=== PATIENT | male | born 1955 | race Caucasian/White ===

== ENCOUNTER 2020-05-07 13:27 | Inpatient (IN) | payer MEDICAID ==
[2020-05-07] MEDS ORDERED: Sodium Chloride 0.9% 10 ML Syringe FLUSH PRN (13:46)
[2020-05-07] MEDS ORDERED: Sodium Chloride 0.9% 1,000 ML IV ONE (13:46)
[2020-05-07] MEDS ORDERED: Ondansetron 4 MG/2 ML SDV IVPUSH ONE (13:46)
--- NOTE | 2020-05-07 13:52 | EDM.PDOC ---
ED HPI GENERAL MEDICAL PROBLEM - General Chief Complaint: Syncope Stated Complaint: DIZZINESS WEAK Time Seen by Provider: 05/07/20 13:28 Source of Information: Reports: Patient History Limitations: Reports: No Limitations - History of Present Illness INITIAL COMMENTS - FREE TEXT/NARRATIVE: HISTORY AND PHYSICAL: History of present illness: Patient is a 65-year-old male who presents to the emergency room with complaints of syncopal events. He states over the past 2 days he has felt weak and tremulous. He has had several syncopal events, states he does not recall the sensation of going to pass out. Patient is a routine alcohol drinker although he states that is typically "just on weekends". Denies any recent alcohol use. This morning he had nausea, vomiting and diaphoresis. His daughter reports that he passed out while at home and made him come to the emergency department for evaluation. He reports he does not remember passing out today. The daughter also reports that Daniel was recently seen in [place] and was told he had some "heart problems and low potassium". Patient denies any fever, headache, change in vision, neck pain/stiffness, chest pain, back pain, shortness of breath or cough. Denies any abdominal pain, diarrhea, constipation or dysuria. Has not noted any blood in urine or stool. Patient has been eating and drinking appropriately. Review of systems: As per history of present illness and below otherwise all systems reviewed and negative. Past medical history: As per history of present illness and as reviewed below otherwise noncontribut ory. Surgical history: As per history of present illness and as reviewed below otherwise noncontributory. Social history: See social history for further information Family history: As per history of present illness and as reviewed below otherwise noncontributory. Physical exam: General: Well-developed and well-nourished 65-year-old male. Alert and oriented. Nontoxic-appearing and in no acute distress. HEENT: Atraumatic, normocephalic, pupils equal and reactive bilaterally, negative for conjunctival pallor or scleral icterus, nystagmus noted, mucous membranes moist, TMs normal bilaterally, throat clear, neck supple, nontender, trachea midline. No drooling or trismus noted. No meningeal signs. No hot potato voice noted. Lungs: Clear to auscultation, breath sounds equal bilaterally, chest nontender. Heart: S1S2, regular rate and rhythm without overt murmur Abdomen: Soft, nondistended, nontender. Negative for masses or hepatosplenomegaly. Negative for costovertebral tenderness. Pelvis: Stable nontender. Skin: Intact, warm, dry. No lesions or rashes noted. Extremities: Ambulatory, moves all extremities per self without difficulty or deficits, negative for cords or calf pain. Neurovascular unremarkable. Neuro: Awake, alert, oriented. Cranial nerves II through XII unremarkable. Cerebellum unremarkable. Motor and sensory unremarkable throughout. Exam nonfocal. Notes: Patient's vital signs are stable. Blood glucose is 108. NIH 0, GCS 15. CIWA 8 (+ nausea, agitation, tremor, diaphoresis). Patient did get up to use the bathroom, standing at the bedside to use the urinal and it was noted that his pulse rate did go into the 140s. Lab work shows hypo-magnesium. Vital signs remained stable. Imaging is unremarkable. Admission was offered for observation with telemetry, patient is agreeable. Dr. Richey, hospitalist was consulted on this case, he is agreeable to keeping this patient for further care and management. Diagnostics: CBC, CMP, UA, urine drug screen, EtOH, lipase, EKG, troponin, 1 view chest, head CT Therapeutics: IV fluid, Zofran Prescription: None Impression: Syncope Hypomagnesemia Alcohol withdrawl Plan: Observation admission with telemetry Definitive disposition and diagnosis as appropriate pending reevaluation and review of above. - Related Data Allergies Allergy/AdvReac Type Severity Reaction Status Date / Time No Known Allergies Allergy Verified 05/07/20 13:42 Home Meds: Home Meds . [No Known Home Meds] 05/07/20 [History] ED ROS GENERAL - Review of Systems Review Of Systems: Comprehensive ROS is negative, except as noted in HPI. - Physical Exam Exam: See Below (See dictation) Course - Vital Signs Last Recorded V/S: Last Vital Signs Temp 96 F L 05/07/20 13:37 Pulse 145 H 05/07/20 15:07 Resp 27 H 05/07/20 15:07 BP 154/83 H 05/07/20 15:07 Pulse Ox 92 L 05/07/20 15:07 - Orders/Labs/Meds Orders: Active Orders 24 hr Category Date Time Status EKG Documentation Completion [RC] STAT Care 05/07/20 13:46 Active MVI, Adult with Vitamin K [Infuvite Adult] 10 ml Med 05/07/20 15:11 Ordered Thiamine [Vitamin B-1] 100 mg Folic Acid 1 mg Sodium Chloride 0.9% [Normal Saline] 1,000 ml IV ONETIME Magnesium Sulfate/Water [Magnesium Sulfate in Water Med 05/07/20 15:03 Ordered Premix] 2 gm Premix Bag 1 bag IV ONETIME Sodium Chloride 0.9% [Saline Flush] Med 05/07/20 13:46 Active 10 ml FLUSH ASDIRECTED PRN Sodium Chloride 0.9% [Saline Flush] Med 05/07/20 13:46 Active 2.5 ml FLUSH ASDIRECTED PRN Saline Lock Insert [OM.PC] Stat Oth 05/07/20 13:46 Ordered Medication Orders Magnesium Sulfate 2 gm/ Premix 50 mls @ 50 mls/hr IV ONETIME ONE Stop: 05/07/20 16:02 Multivitamins/Minerals 10 ml/Thiamine HCl 100 mg/ Folic Acid 1 mg/ Sodium Chloride 1,011.2 mls @ 150 mls/hr IV ONETIME ONE Stop: 05/07/20 21:55 Sodium Chloride (Saline Flush) 10 ml FLUSH ASDIRECTED PRN PRN Reason: Keep Vein Open Last Admin: 05/07/20 14:15 Dose: 10 ml Documented by: KEISHA Sodium Chloride (Saline Flush) 2.5 ml FLUSH ASDIRECTED PRN PRN Reason: Keep Vein Open Last Admin: 05/07/20 14:15 Dose: 2.5 ml Documented by: KEISHA Labs: Laboratory Tests 05/07/20 05/07/20 05/07/20 Range/Units 13:45 13:45 13:45 WBC 3.45 L (4.0-11.0) K/uL RBC 3.86 L (4.50-5.90) M/uL Hgb 13.7 (13.0-17.0) g/dL Hct 39.2 (38.0-50.0) % MCV 101.6 H (80.0-98.0) fL MCH 35.5 H (27.0-32.0) pg MCHC 34.9 (31.0-37.0) g/dL RDW Std Deviation 48.3 (28.0-62.0) fl RDW Coeff of [place] 13 (11.0-15.0) % Plt Count 100 L (150-400) K/uL MPV 9.60 (7.40-12.00) fL Neut % (Auto) 58.2 (48.0-80.0) % Lymph % (Auto) 29.3 (16.0-40.0) % Rains % (Auto) 11.3 (0.0-15.0) % Eos % (Auto) 0.9 (0.0-7.0) % Baso % (Auto) 0.3 (0.0-1.5) % Neut # (Auto) 2.0 (1.4-5.7) K/uL Lymph # (Auto) 1.0 (0.6-2.4) K/uL Rains # (Auto) 0.4 (0.0-0.8) K/uL Eos # (Auto) 0.0 (0.0-0.7) K/uL Baso # (Auto) 0.0 (0.0-0.1) K/uL Nucleated RBC % 0.0 /100WBC Nucleated RBCs # 0 K/uL Sodium 140 (136-148) mmol/L Potassium 3.8 (3.5-5.1) mmol/L Chloride 101 (98-107) mmol/L Carbon Dioxide 25.4 (21.0-32.0) mmol/L BUN 3 L (7.0-18.0) mg/dL Creatinine 0.6 L (0.8-1.3) mg/dL Est Cr Clr Drug Dosing TNP Estimated GFR (MDRD) > 60.0 ml/min Glucose 105 (74-106) mg/dL POC Glucose (60-110) mg/dL Calcium 8.1 L (8.5-10.1) mg/dL Magnesium 1.2 L (1.8-2.4) mg/dL Total Bilirubin 1.3 H (0.2-1.0) mg/dL AST 131 H (15-37) IU/L ALT 99 H (14-63) IU/L Alkaline Phosphatase 84 (46-116) U/L Troponin I < 0.050 (0.000-0.056) ng/mL Total Protein 6.7 (6.4-8.2) g/dL Albumin 3.6 (3.4-5.0) g/dL Globulin 3.1 (2.6-4.0) g/dL Albumin/Globulin Ratio 1.2 (0.9-1.6) Lipase 100 (73-393) U/L Urine Opiates Screen (NEGATIVE) Ur Oxycodone Screen (NEGATIVE) Urine Methadone Screen (NEGATIVE) Ur Barbiturates Screen (NEGATIVE) Ur Phencyclidine Scrn (NEGATIVE) Ur Amphetamine Screen (NEGATIVE) U Methamphetamines Scrn (NEGATIVE) U Benzodiazepines Scrn (NEGATIVE) U Cocaine Metab Screen (NEGATIVE) U Marijuana (THC) Screen (NEGATIVE) Ethyl Alcohol 91 mg/dL 05/07/20 05/07/20 Range/Units 13:47 14:35 WBC (4.0-11.0) K/uL RBC (4.50-5.90) M/uL Hgb (13.0-17.0) g/dL Hct (38.0-50.0) % MCV (80.0-98.0) fL MCH (27.0-32.0) pg MCHC (31.0-37.0) g/dL RDW Std Deviation (28.0-62.0) fl RDW Coeff of [place] (11.0-15.0) % Plt Count (150-400) K/uL MPV (7.40-12.00) fL Neut % (Auto) (48.0-80.0) % Lymph % (Auto) (16.0-40.0) % Rains % (Auto) (0.0-15.0) % Eos % (Auto) (0.0-7.0) % Baso % (Auto) (0.0-1.5) % Neut # (Auto) (1.4-5.7) K/uL Lymph # (Auto) (0.6-2.4) K/uL Rains # (Auto) (0.0-0.8) K/uL Eos # (Auto) (0.0-0.7) K/uL Baso # (Auto) (0.0-0.1) K/uL Nucleated RBC % /100WBC Nucleated RBCs # K/uL Sodium (136-148) mmol/L Potassium (3.5-5.1) mmol/L Chloride (98-107) mmol/L Carbon Dioxide (21.0-32.0) mmol/L BUN (7.0-18.0) mg/dL Creatinine (0.8-1.3) mg/dL Est Cr Clr Drug Dosing Estimated GFR (MDRD) ml/min Glucose (74-106) mg/dL POC Glucose 108 (60-110) mg/dL Calcium (8.5-10.1) mg/dL Magnesium (1.8-2.4) mg/dL Total Bilirubin (0.2-1.0) mg/dL AST (15-37) IU/L ALT (14-63) IU/L Alkaline Phosphatase (46-116) U/L Troponin I (0.000-0.056) ng/mL Total Protein (6.4-8.2) g/dL Albumin (3.4-5.0) g/dL Globulin (2.6-4.0) g/dL Albumin/Globulin Ratio (0.9-1.6) Lipase (73-393) U/L Urine Opiates Screen NEGATIVE (NEGATIVE) Ur Oxycodone Screen NEGATIVE (NEGATIVE) Urine Methadone Screen NEGATIVE (NEGATIVE) Ur Barbiturates Screen NEGATIVE (NEGATIVE) Ur Phencyclidine Scrn NEGATIVE (NEGATIVE) Ur Amphetamine Screen NEGATIVE (NEGATIVE) U Methamphetamines Scrn NEGATIVE (NEGATIVE) U Benzodiazepines Scrn NEGATIVE (NEGATIVE) U Cocaine Metab Screen NEGATIVE (NEGATIVE) U Marijuana (THC) Screen NEGATIVE (NEGATIVE) Ethyl Alcohol mg/dL Meds: Medications Generic Name Dose Route Start Last Admin Trade Name Freq PRN Reason Stop Dose Admin Magnesium Sulfate 2 gm/ Premix 50 mls @ 50 mls/hr 05/07/20 15:03 IV 05/07/20 16:02 ONETIME ONE Multivitamins/Minerals 10 ml/ 1,011.2 mls @ 150 mls/hr 05/07/20 15:11 Thiamine HCl 100 mg/ Folic IV 05/07/20 21:55 Acid 1 mg/ Sodium Chloride ONETIME ONE Sodium Chloride 10 ml 05/07/20 13:46 05/07/20 14:15 Saline Flush FLUSH 10 ml ASDIRECTED PRN Administration Keep Vein Open Sodium Chloride 2.5 ml 05/07/20 13:46 05/07/20 14:15 Saline Flush FLUSH 2.5 ml ASDIRECTED PRN Administration Keep Vein Open Discontinued Medications Generic Name Dose Route Start Last Admin Trade Name Freq PRN Reason Stop Dose Admin Sodium Chloride 1,000 mls @ 999 mls/hr 05/07/20 13:46 05/07/20 14:06 Normal Saline IV 05/07/20 14:46 999 mls/hr STAT ONE Administration Lorazepam 1 mg 05/07/20 14:43 Ativan IVPUSH 05/07/20 14:44 ONETIME ONE Ondansetron HCl 4 mg 05/07/20 13:46 05/07/20 14:06 Zofran IVPUSH 05/07/20 13:47 4 mg ONETIME ONE Administration Departure - Departure Time of Disposition: 15:16 Disposition: Refer to Observation Clinical Impression: Hypomagnesemia Syncope Qualifiers: Syncope type: unspecified Qualified Code(s): R55 - Syncope and collapse Alcohol withdrawal Qualifiers: Complication of substance-induced condition: uncomplicated Qualified Code(s): F10.230 - Alcohol dependence with withdrawal, uncomplicated - Discharge Information Referrals: PCP,Not In Area [Primary Care Provider] - Forms: ED Department Discharge Sepsis Event Note (ED) - Evaluation Sepsis Screening Result: No Definite Risk - Focused Exam Vital Signs: Vital Signs Temp Pulse Resp BP Pulse Ox 05/07/20 15:07 145 H 27 H 154/83 H 92 L 05/07/20 14:48 93 16 138/67 92 L 05/07/20 14:15 72 16 141/69 H 93 L 05/07/20 13:37 96 F L 80 19 141/69 H 96 - My Orders Last 24 Hours: My Active Orders 05/07/20 13:46 EKG Documentation Completion [RC] STAT Sodium Chloride 0.9% [Saline Flush] 10 ml FLUSH ASDIRECTED PRN Sodium Chloride 0.9% [Saline Flush] 2.5 ml FLUSH ASDIRECTED PRN Saline Lock Insert [OM.PC] Stat 05/07/20 15:03 Magnesium Sulfate/Water [Magnesium Sulfate in Water Premix] 2 gm Premix Bag 1 bag IV ONETIME 05/07/20 15:11 MVI, Adult with Vitamin K [Infuvite Adult] 10 ml Thiamine [Vitamin B-1] 100 mg Folic Acid 1 mg Sodium Chloride 0.9% [Normal Saline] 1,000 ml IV ONETIME - Assessment/Plan Last 24 Hours: My Active Orders 05/07/20 13:46 EKG Documentation Completion [RC] STAT Sodium Chloride 0.9% [Saline Flush] 10 ml FLUSH ASDIRECTED PRN Sodium Chloride 0.9% [Saline Flush] 2.5 ml FLUSH ASDIRECTED PRN Saline Lock Insert [OM.PC] Stat 05/07/20 15:03 Magnesium Sulfate/Water [Magnesium Sulfate in Water Premix] 2 gm Premix Bag 1 bag IV ONETIME 05/07/20 15:11 MVI, Adult with Vitamin K [Infuvite Adult] 10 ml Thiamine [Vitamin B-1] 100 mg Folic Acid 1 mg Sodium Chloride 0.9% [Normal Saline] 1,000 ml IV ONETIME
[2020-05-07] MEDS: Sodium Chloride 0.9% 2.5 ML Syringe FLUSH PRN (14:15)
[2020-05-07 14:21] LABS: BLOOD UREA NITROGEN,BUN 3 mg/dL (7.0-18.0); CARBON DIOXIDE,CO2 25.4 mmol/L (21.0-32.0); CHLORIDE,CL 101 mmol/L (98-107); GLUCOSE RANDOM 105 mg/dL (74-106); LIPASE 100 U/L (73-393); POTASSIUM,K 3.8 mmol/L (3.5-5.1); SODIUM,NA 140 mmol/L (136-148)
[2020-05-07] MEDS ORDERED: LORazepam 2 MG/ML SDV IVPUSH ONE (14:43)
--- NOTE | 2020-05-07 14:43 | CT ---
Head CT Technique: Multiple axial sections through the brain were obtained. Intravenous contrast was not utilized. Comparison: No prior intracranial imaging is available. Findings: Ventricles along with basal cisterns and sulci over the convexities are mildly prominent. No abnormal parenchymal densities are seen. No evidence of intracranial hemorrhage. No midline shift or mass-effect is appreciated. Bone window settings were reviewed. No acute calvarial abnormality is seen. Nothing acute is seen within the visualized paranasal sinuses or mastoid sinuses. Impression: 1. Mild generalized atrophy. 2. No acute intracranial abnormality is appreciated. Diagnostic code #2 This report was dictated in MD[facility]
--- NOTE | 2020-05-07 14:43 | CR ---
Chest: Portable view of the chest was obtained. Comparison: No prior chest imaging is available. Heart size and mediastinum are normal. Lungs are clear with no acute parenchymal change. Bony structures are grossly intact. Impression: 1. Nothing acute is seen on portable chest x-ray. Diagnostic code #1 This report was dictated in MDT
[2020-05-07] MEDS ORDERED: Magnesium Sulfate/Water 2 GM in Premix Bag 1 BAG IV ONE ×2 (15:03→16:30)
[2020-05-07] MEDS ORDERED: MVI, Adult with Vitamin K 10 ML, Thiamine 100 MG, Folic Acid 1 MG in Sodium Chloride 0.... IV ONE ×4 (15:11)
[2020-05-07] MEDS ORDERED: Ondansetron 4 MG/2 ML SDV IVPUSH PRN (16:04)
[2020-05-07] MEDS ORDERED: Albuterol/Ipratropium 3.0-0.5 MG/3 ML Neb Soln NEB PRN (16:04)
--- NOTE | 2020-05-07 16:12 | PCM.HP.2 ---
H&P History of Present Illness - General Date of Service: 05/07/20 Admit Problem/Dx: Admission Diagnosis/Problem Admission Diagnosis/Problem Syncope Source of Information: Patient History Limitations: Reports: No Limitations - History of Present Illness Initial Comments - Free Text/Narative: This 65 year old male with little past medical history presented to the ED today with complaints of shaking, sweating, and daughter reports passing out. He reports he was feeling not well the last few days, having trouble walking because he is so unsteady and shaky. Denies blurred vision or double vision. He denies headache or fevers. No chest pain or SOB. He reports he drinks at least a 6 pack a night, maybe more depending on who is with him. He says the last drink he had was last night. He isn't sure if shaking gets worse when he stops drinking or when he is drinking. He denies history of seizures. He reports he was in [place] last week or two and had low potassium and also noted bloody stools. He reports he was given a pill to take before he eats. He reports the last bloody stool was 2 weeks ago. Denies black stool now. No abdominal pain. His daughter reported syncope, which he states he doesn't remember that, that was happening. He also reports he recently had a carotid test, and it stated he had plaque build up, but he is unsure how much. He reports he smokes 1/2 ppd since he was 20 years old. He denies recreational drug use. In the ED no leukocytosis noted, hgb 13.7 (NDHIN baseline around 14.7) Platelets 100,000, last drawn 140,000 04/18/2020. K+ 3.8, Magnesium 1.2 Bilirubin 1.3, AST 131, ALT 99, alk phos 84, which are near baseline. Troponin negative. Lipase 100. ETOH 94, UA and Utox negative. CXr negative for acute cardiopulmonary process, Head CT negative as well, mild atrophy noted. With acitivity tachycardia is noted, 140s and he gets lightheaded with activity and feels very shaky. He was given magnesium 2 gm IV, MVI IV, Zofran and 1 L NS in the ED. he will be admitted with alcohol withdrawal, hypomagnesemia and syncope. [facility] records reviewed, only labwork available as mentioned above. - Related Data Allergies/Adverse Reactions: Allergies Allergy/AdvReac Type Severity Reaction Status Date / Time No Known Allergies Allergy Verified 05/07/20 13:42 Home Medications: Home Meds . [No Known Home Meds] 05/07/20 [History] Past Medical History HEENT History: Reports: Impaired Vision, Other (See Below) Other HEENT History: wears glassess Cardiovascular History: Reports: Other (See Below) Other Cardiovascular History: heart problem Gastrointestinal History: Reports: None - Past Surgical History HEENT Surgical History: Reports: None GI Surgical History: Reports: Other (See Below) Other GI Surgeries/Procedures: "part of small intestine taken out" Social & Family History - Family History Family Medical History: Noncontributory - Tobacco Use Smoking Status *Q: Current Every Day Smoker Years of Tobacco use: 20 Packs/Tins Daily: 0.5 - Caffeine Use Caffeine Use: Reports: Coffee - Alcohol Use Alcohol Use History: Yes Days Per Week of Alcohol Use: 7 Number of Drinks Per Day: 6 Total Drinks Per Week: 42 Alcohol Use Frequency: Daily - Recreational Drug Use Recreational Drug Use: No H&P Review of Systems - Review of Systems: Review Of Systems: See Below General: Reports: Malaise, Weakness, Fatigue HEENT: Reports: No Symptoms. Denies: Headaches, Vertigo, Visual Changes Pulmonary: Reports: No Symptoms. Denies: Shortness of Breath Cardiovascular: Reports: Syncope. Denies: Chest Pain, Lightheadedness, Blood Pressure Problem Gastrointestinal: Reports: No Symptoms. Denies: Abdominal Pain, Black Stool, Bloody Stool, Decreased Appetite, Nausea, Vomiting Genitourinary: Reports: No Symptoms. Denies: Dysuria, Frequency, Burning Skin: Reports: No Symptoms Psychiatric: Reports: No Symptoms Neurological: Reports: Syncope, Tremors, Difficulty Walking. Denies: Seizure Hematologic/Lymphatic: Reports: No Symptoms Immunologic: Reports: No Symptoms Exam - Exam Exam: See Below - Vital Signs Vital Signs: Last Vital Signs Temp 96 F L 05/07/20 13:37 Pulse 93 05/07/20 15:56 Resp 17 05/07/20 15:56 BP 146/88 H 05/07/20 15:56 Pulse Ox 92 L 05/07/20 15:56 - Exam General: Alert, Oriented, Cooperative HEENT: Conjunctiva Clear, Mucosa Moist & [place], Posterior Pharynx Clear, Scleral Icterus (mild), Other (nystagmus noted intermittently) Neck: Supple, Full Range of Motion. No: JVD Lungs: Clear to Auscultation, Normal Respiratory Effort Cardiovascular: Regular Rate, Regular Rhythm, Normal S1, Normal S2 GI/Abdominal Exam: Normal Bowel Sounds, Soft, Non-Tender Back Exam: Normal Inspection, Full Range of Motion Extremities: Normal Inspection, Normal Range of Motion, Non-Tender, No Pedal Edema Skin: Warm, Dry, Petechia, Ecchymosis (bilateral arms) Neuro Extensive - Mental Status: Alert, Oriented x3, Other (speech pressed at times) Neuro Extensive - Motor, Sensory, Reflexes: CN II-XII Intact, Abnormal Gait, Ataxia Psychiatric: Alert, Normal Affect, Normal Mood, Withdrawal Symptoms - Patient Data Lab Results Last 24 hrs: Laboratory Results - last 24 hr 05/07/20 05/07/20 05/07/20 Range/Units 13:45 13:45 13:45 WBC 3.45 L (4.0-11.0) K/uL RBC 3.86 L (4.50-5.90) M/uL Hgb 13.7 (13.0-17.0) g/dL Hct 39.2 (38.0-50.0) % MCV 101.6 H (80.0-98.0) fL MCH 35.5 H (27.0-32.0) pg MCHC 34.9 (31.0-37.0) g/dL RDW Std Deviation 48.3 (28.0-62.0) fl RDW Coeff of [place] 13 (11.0-15.0) % Plt Count 100 L (150-400) K/uL MPV 9.60 (7.40-12.00) fL Neut % (Auto) 58.2 (48.0-80.0) % Lymph % (Auto) 29.3 (16.0-40.0) % [place] % (Auto) 11.3 (0.0-15.0) % Eos % (Auto) 0.9 (0.0-7.0) % Baso % (Auto) 0.3 (0.0-1.5) % Neut # (Auto) 2.0 (1.4-5.7) K/uL Lymph # (Auto) 1.0 (0.6-2.4) K/uL [place] # (Auto) 0.4 (0.0-0.8) K/uL Eos # (Auto) 0.0 (0.0-0.7) K/uL Baso # (Auto) 0.0 (0.0-0.1) K/uL Nucleated RBC % 0.0 /100WBC Nucleated RBCs # 0 K/uL Sodium 140 (136-148) mmol/L Potassium 3.8 (3.5-5.1) mmol/L Chloride 101 (98-107) mmol/L Carbon Dioxide 25.4 (21.0-32.0) mmol/L BUN 3 L (7.0-18.0) mg/dL Creatinine 0.6 L (0.8-1.3) mg/dL Est Cr Clr Drug Dosing TNP Estimated GFR (MDRD) > 60.0 ml/min Glucose 105 (74-106) mg/dL POC Glucose (60-110) mg/dL Calcium 8.1 L (8.5-10.1) mg/dL Magnesium 1.2 L (1.8-2.4) mg/dL Total Bilirubin 1.3 H (0.2-1.0) mg/dL AST 131 H (15-37) IU/L ALT 99 H (14-63) IU/L Alkaline Phosphatase 84 (46-116) U/L Troponin I < 0.050 (0.000-0.056) ng/mL Total Protein 6.7 (6.4-8.2) g/dL Albumin 3.6 (3.4-5.0) g/dL Globulin 3.1 (2.6-4.0) g/dL Albumin/Globulin Ratio 1.2 (0.9-1.6) Lipase 100 (73-393) U/L Urine Color Urine Appearance Urine pH (5.0-8.0) Ur Specific [place] (1.001-1.035) Urine Protein (NEGATIVE) mg/dL Urine Glucose (UA) (NEGATIVE) mg/dL Urine Ketones (NEGATIVE) mg/dL Urine Occult Blood (NEGATIVE) Urine Nitrite (NEGATIVE) Urine Bilirubin (NEGATIVE) Urine Urobilinogen (<2.0) EU/dL Ur Leukocyte Esterase (NEGATIVE) Urine RBC (0-2/HPF) Urine WBC (0-5/HPF) Ur Epithelial Cells (NONE-FEW) Urine Bacteria (NEGATIVE) Urine Opiates Screen (NEGATIVE) Ur Oxycodone Screen (NEGATIVE) Urine Methadone Screen (NEGATIVE) Ur Barbiturates Screen (NEGATIVE) Ur Phencyclidine Scrn (NEGATIVE) Ur Amphetamine Screen (NEGATIVE) U Methamphetamines Scrn (NEGATIVE) U Benzodiazepines Scrn (NEGATIVE) U Cocaine Metab Screen (NEGATIVE) U Marijuana (THC) Screen (NEGATIVE) Ethyl Alcohol 91 mg/dL 05/07/20 05/07/20 05/07/20 Range/Units 13:47 14:35 14:35 WBC (4.0-11.0) K/uL RBC (4.50-5.90) M/uL Hgb (13.0-17.0) g/dL Hct (38.0-50.0) % MCV (80.0-98.0) fL MCH (27.0-32.0) pg MCHC (31.0-37.0) g/dL RDW Std Deviation (28.0-62.0) fl RDW Coeff of [place] (11.0-15.0) % Plt Count (150-400) K/uL MPV (7.40-12.00) fL Neut % (Auto) (48.0-80.0) % Lymph % (Auto) (16.0-40.0) % [place] % (Auto) (0.0-15.0) % Eos % (Auto) (0.0-7.0) % Baso % (Auto) (0.0-1.5) % Neut # (Auto) (1.4-5.7) K/uL Lymph # (Auto) (0.6-2.4) K/uL [place] # (Auto) (0.0-0.8) K/uL Eos # (Auto) (0.0-0.7) K/uL Baso # (Auto) (0.0-0.1) K/uL Nucleated RBC % /100WBC Nucleated RBCs # K/uL Sodium (136-148) mmol/L Potassium (3.5-5.1) mmol/L Chloride (98-107) mmol/L Carbon Dioxide (21.0-32.0) mmol/L BUN (7.0-18.0) mg/dL Creatinine (0.8-1.3) mg/dL Est Cr Clr Drug Dosing Estimated GFR (MDRD) ml/min Glucose (74-106) mg/dL POC Glucose 108 (60-110) mg/dL Calcium (8.5-10.1) mg/dL Magnesium (1.8-2.4) mg/dL Total Bilirubin (0.2-1.0) mg/dL AST (15-37) IU/L ALT (14-63) IU/L Alkaline Phosphatase (46-116) U/L Troponin I (0.000-0.056) ng/mL Total Protein (6.4-8.2) g/dL Albumin (3.4-5.0) g/dL Globulin (2.6-4.0) g/dL Albumin/Globulin Ratio (0.9-1.6) Lipase (73-393) U/L Urine Color YELLOW Urine Appearance CLEAR Urine pH 6.5 (5.0-8.0) Ur Specific [place] 1.020 (1.001-1.035) Urine Protein NEGATIVE (NEGATIVE) mg/dL Urine Glucose (UA) NEGATIVE (NEGATIVE) mg/dL Urine Ketones TRACE H (NEGATIVE) mg/dL Urine Occult Blood TRACE-INTACT H (NEGATIVE) Urine Nitrite NEGATIVE (NEGATIVE) Urine Bilirubin NEGATIVE (NEGATIVE) Urine Urobilinogen 1.0 (<2.0) EU/dL Ur Leukocyte Esterase NEGATIVE (NEGATIVE) Urine RBC 0-4 (0-2/HPF) Urine WBC 0-2 (0-5/HPF) Ur Epithelial Cells RARE (NONE-FEW) Urine Bacteria RARE (NEGATIVE) Urine Opiates Screen NEGATIVE (NEGATIVE) Ur Oxycodone Screen NEGATIVE (NEGATIVE) Urine Methadone Screen NEGATIVE (NEGATIVE) Ur Barbiturates Screen NEGATIVE (NEGATIVE) Ur Phencyclidine Scrn NEGATIVE (NEGATIVE) Ur Amphetamine Screen NEGATIVE (NEGATIVE) U Methamphetamines Scrn NEGATIVE (NEGATIVE) U Benzodiazepines Scrn NEGATIVE (NEGATIVE) U Cocaine Metab Screen NEGATIVE (NEGATIVE) U Marijuana (THC) Screen NEGATIVE (NEGATIVE) Ethyl Alcohol mg/dL Result Diagrams: 05/07/20 13:45 05/07/20 13:45 EKG INTERPRETATION EKG Date: 05/07/20 Rhythm: NSR P-Wave: Present QRS: Normal ST-T: Normal QT: Normal Sepsis Event Note - Evaluation Sepsis Screening Result: No Definite Risk - Focused Exam Vital Signs: Vital Signs Temp Pulse Resp BP Pulse Ox 05/07/20 15:56 93 17 146/88 H 92 L 05/07/20 15:07 145 H 27 H 154/83 H 92 L 05/07/20 14:48 93 16 138/67 92 L 05/07/20 14:15 72 16 141/69 H 93 L 05/07/20 13:37 96 F L 80 19 141/69 H 96 Date Exam was Performed: 05/07/20 Time Exam was Performed: 16:16 - Problem List (1) History of GI bleed SNOMED Code(s): 871068333 ICD Code: Z87.19 - PERSONAL HISTORY OF OTHER DISEASES OF THE DIGESTIVE SYSTEM Status: Acute Current Visit: Yes (2) Alcohol abuse SNOMED Code(s): 79877031 ICD Code: F10.10 - ALCOHOL ABUSE, UNCOMPLICATED Status: Acute Current Visit: Yes (3) Wernicke's syndrome SNOMED Code(s): 00161471 ICD Code: E51.2 - WERNICKE'S ENCEPHALOPATHY Status: Acute Current Visit: Yes (4) Transaminitis SNOMED Code(s): 462187129, 001596985 ICD Code: R74.0 - NONSPEC ELEV OF LEVELS OF TRANSAMNS & LACTIC ACID DEHYDRGNSE Status: Acute Current Visit: Yes (5) Hyperbilirubinemia SNOMED Code(s): 41613984 ICD Code: E80.6 - OTHER DISORDERS OF BILIRUBIN METABOLISM Status: Acute Current Visit: Yes (6) Thrombocytopenia SNOMED Code(s): 733176603 ICD Code: D69.6 - THROMBOCYTOPENIA, UNSPECIFIED Status: Acute Current Visit: Yes (7) Alcohol withdrawal SNOMED Code(s): 608539454 ICD Code: F10.239 - ALCOHOL DEPENDENCE WITH WITHDRAWAL, UNSPECIFIED Status: Acute Current Visit: Yes Qualifiers: Complication of substance-induced condition: uncomplicated Qualified Code(s): F10.230 - Alcohol dependence with withdrawal, uncomplicated (8) Hypomagnesemia SNOMED Code(s): 450948518 ICD Code: E83.42 - HYPOMAGNESEMIA Status: Acute Current Visit: Yes (9) Syncope SNOMED Code(s): 334526095 ICD Code: R55 - SYNCOPE AND COLLAPSE Status: Acute Current Visit: Yes Qualifiers: Syncope type: unspecified Qualified Code(s): R55 - Syncope and collapse Problem List Initiated/Reviewed/Updated: Yes Orders Last 24hrs: Active Orders 24 hr Category Date Time Status Admission Status [Patient Status] [ADT] Stat ADT 05/07/20 15:17 Active Antiembolic Devices [RC] PER UNIT ROUTINE Care 05/07/20 16:04 Ordered CIWAA Assessment [RC] Q4H Care 05/07/20 16:07 Ordered EKG Documentation Completion [RC] STAT Care 05/07/20 13:46 Active Intake and Output [RC] QSHIFT Care 05/07/20 16:04 Ordered Oxygen Therapy [RC] PRN Care 05/07/20 16:04 Ordered RT Aerosol Therapy [RC] ASDIRECTED Care 05/07/20 16:06 Ordered Telemetry Monitoring [Cardiac Monitoring] [RC] . Care 05/07/20 15:19 Active DIRECTED Up With Assistance [RC] ASDIRECTED Care 05/07/20 16:04 Ordered VTE/DVT Education [RC] PER UNIT ROUTINE Care 05/07/20 16:04 Ordered Vital Signs [RC] Q4H Care 05/07/20 16:04 Ordered Regular Diet [DIET] Diet 05/07/20 Dinner Ordered Abdomen Ltd [US] Routine Exams 05/07/20 16:06 Ordered CV Carotid Duplex Comp [US] Urgent Exams 05/07/20 16:11 Ordered Echo Comp wo Cont [US] Urgent Exams 05/07/20 16:11 Ordered CBC WITH AUTO DIFF [HEME] AM Lab 05/08/20 05:11 Ordered COMPREHENSIVE METABOLIC PN,CMP [CHEM] AM Lab 05/08/20 05:11 Ordered HEPATITIS PANEL (4) [REF] Urgent Lab 05/07/20 15:23 Ordered MAGNESIUM [CHEM] AM Lab 05/08/20 05:11 Ordered PHOSPHORUS [CHEM] AM Lab 05/08/20 05:11 Ordered Albuterol/Ipratropium [DuoNeb 3.0-0.5 MG/3 ML] Med 05/07/20 16:04 Ordered 3 ml NEB Q4HRRT PRN Folic Acid Med 05/08/20 09:00 Ordered 1 mg SUBCUT DAILY LORazepam [Ativan] Med 05/07/20 16:04 Ordered See Protocol IV Q4H PRN LORazepam [Ativan] Med 05/07/20 16:07 Ordered See Protocol PO Q4H PRN MVI, Adult with Vitamin K [Infuvite Adult] 10 ml Med 05/07/20 15:11 Active Thiamine [Vitamin B-1] 100 mg Folic Acid 1 mg Sodium Chloride 0.9% [Normal Saline] 1,000 ml IV ONETIME Ondansetron [Zofran] Med 05/07/20 16:04 Ordered 4 mg IVPUSH Q4H PRN Pantoprazole [ProTONIX IV] 40 mg Med 05/07/20 16:15 Ordered Sodium Chloride 0.9% [Normal Saline] 10 ml IV Q12H Sodium Chloride 0.9% [Normal Saline] 1,000 ml Med 05/07/20 16:15 Ordered IV Q10H Sodium Chloride 0.9% [Saline Flush] Med 05/07/20 13:46 Active 2.5 ml FLUSH ASDIRECTED PRN Thiamine [Vitamin B-1] 500 mg Med 05/07/20 16:09 Ordered Sodium Chloride 0.9% [Normal Saline] 100 ml IV TID Saline Lock Insert [OM.PC] Stat Oth 05/07/20 13:46 Ordered Sequential Compression Device [OM.PC] Per Unit Routine Oth 05/07/20 16:04 Ordered Resuscitation Status Routine Resus Stat 05/07/20 16:04 Ordered Medication Orders Albuterol/Ipratropium (Duoneb 3.0-0.5 Mg/3 Ml) 3 ml NEB Q4HRRT PRN PRN Reason: Shortness Of Breath/wheezing Folic Acid (Folic Acid) 1 mg SUBCUT DAILY [facility] Multivitamins/Minerals 10 ml/Thiamine HCl 100 mg/ Folic Acid 1 mg/ Sodium Chloride 1,011.2 mls @ 150 mls/hr IV ONETIME ONE Stop: 05/07/20 21:55 Last Admin: 05/07/20 15:31 Dose: 150 mls/hr Documented by: VIALMEL Sodium Chloride (Normal Saline) 1,000 mls @ 100 mls/hr IV Q10H KARON Thiamine HCl 500 mg/ Sodium (Chloride) 105 mls @ 210 mls/hr IV TID KARON Stop: 05/09/20 06:01 Pantoprazole Sodium 40 mg/ (Sodium Chloride) 10 mls @ 300 mls/hr IV Q12H KARON Lorazepam (Ativan) 0 mg IV Q4H PRN; Protocol PRN Reason: CIWAA Lorazepam (Ativan) 0 mg PO Q4H PRN; Protocol PRN Reason: CIWAA Ondansetron HCl (Zofran) 4 mg IVPUSH Q4H PRN PRN Reason: Nausea Sodium Chloride (Saline Flush) 2.5 ml FLUSH ASDIRECTED PRN PRN Reason: Keep Vein Open Last Admin: 05/07/20 14:15 Dose: 2.5 ml Documented by: KEISHA Assessment/Plan Comment:: This 65 year old male admitted with alcohol withdrawal, suspected wernicke's, syncope and electrolyte abnormalities 1. Alcohol withdrawal, suspected Wernicke's - CIWAA assessment with Ativan PRN - Thiamine 500 mg IV TID x 2 days then 250 mg IV/IM daily for 5 more days. Monitor response in am - Folic acid daily - Monitor closely - Supplement electrolytes as needed, will give extra 2 gm magnesium to equal 4 gm today. - Check Phosphorus 2. Syncope - reports hx carotid plaque, will obtained Carotid US and ECHO - Monitor on telemetry - HR elevates with activity - Obtain Orthostatics - IVFs gently 100 ml/hr overnight. - Consider seizure activity from alcohol withdrawal. 3. Transaminitis/hyperbilirubinemia - Obtain RUQ US - Hepatitis panel pending - Counseled heavily on alcohol use and the need for sobriety 4. Thrombocytopenia: -Monitor closely, likely secondary to alcohol use 5. Recent GI bleeding? - obtain records from [facility] - Protonix Q12h for now and monitor stools - Denies dark or bloody stools now. VTE prophylaxis: SCDs only Dispo: 2 days
[2020-05-07] MEDS ORDERED: Sodium Chloride 0.9% 1,000 ML IV SCH ×2 (16:15→20:30)
[2020-05-07] MEDS ORDERED: Thiamine 500 MG in Sodium Chloride 0.9% 250 ML IV SCH (16:30)
[2020-05-07] MEDS: Pantoprazole 40 MG in Sodium Chloride 0.9% 10 ML IV SCH (18:23)
[2020-05-07] MEDS: LORazepam 1 MG Tab PO PRN (20:40)
[2020-05-07] MEDS: Thiamine 500 MG in Sodium Chloride 0.9% 250 ML IV SCH (22:33)
[2020-05-07] MEDS: Sodium Chloride 0.9% 1,000 ML IV SCH (22:33)
[2020-05-08] MEDS: LORazepam 2 MG/ML SDV IV PRN (00:43)
[2020-05-08] MEDS: Pantoprazole 40 MG in Sodium Chloride 0.9% 10 ML IV SCH ×2 (04:31→18:06)
[2020-05-08] MEDS: Thiamine 500 MG in Sodium Chloride 0.9% 250 ML IV SCH ×3 (05:40→21:28)
[2020-05-08 06:47] LABS: BLOOD UREA NITROGEN,BUN 4 mg/dL (7.0-18.0); CARBON DIOXIDE,CO2 31.3 mmol/L (21.0-32.0); CHLORIDE,CL 99 mmol/L (98-107); GLUCOSE RANDOM 85 mg/dL (74-106); POTASSIUM,K 3.6 mmol/L (3.5-5.1); SODIUM,NA 139 mmol/L (136-148)
[2020-05-08] MEDS ORDERED: Magnesium Sulfate/Water 4 GM in Premix Bag 1 BAG IV ONE (07:56)
[2020-05-08] MEDS: Sodium Chloride 0.9% 1,000 ML IV SCH ×2 (09:32→21:32)
[2020-05-08] MEDS: Folic Acid 50 MG/10 ML MDV SUBCUT SCH (09:40)
--- NOTE | 2020-05-08 09:53 | US ---
Limited abdominal ultrasound: Multiple real-time images of the upper right abdomen were obtained. Comparison: No prior abdominal imaging is available. Findings: Liver is slightly echogenic. No focal abnormality appreciated within the liver. Gallbladder contains no shadowing gallstones. No gallbladder wall thickening or biliary duct dilatation is seen. Right kidney shows no hydronephrosis or mass. Right kidney has a length of 12.0 cm. Aorta shows atherosclerotic change without aneurysm. Pancreas is incompletely seen. Visualized portions of the pancreas shows no discrete abnormality. Impression: 1. Probable fatty infiltration within the liver. 2. No additional abnormality is appreciated on right upper quadrant abdominal ultrasound. Diagnostic code #2 This report was dictated in MDT
--- NOTE | 2020-05-08 09:53 | US ---
Carotid ultrasound: Duplex and color flow imaging was obtained of the carotid arteries. Mild amount of plaque noted within both carotid bulbs. Comparison: No previous carotid imaging. Right side: CCA has a peak systolic velocity of 1.26 m/sec. ICA has a peak systolic velocity of 0.76 m/sec and peak end-diastolic velocity of 0.26 m/sec. ECA has a peak systolic velocity of 1.19 m/sec. Vertebral artery has a peak systolic velocity of 0.72 m/sec. ICA/CCA ratio is 0.70. Left side: CCA has a peak systolic velocity of 1.01 m/sec. ICA has a peak systolic velocity of 0.61 m/sec and peak end-diastolic velocity of 0.19 m/sec. ECA has a peak systolic velocity of 1.16 m/sec. Vertebral artery has a peak systolic velocity of 0.49 m/sec. ICA/CCA ratio is 0.76. Impression: 1. Mild amount of plaque. 2. Normal velocity measurements. Diagnostic code #2 This report was dictated in MDT
--- NOTE | 2020-05-08 10:57 | PCM.PN ---
- General Info Date of Service: 05/08/20 Admission Dx/Problem (Free Text): Admission Diagnosis/Problem Admission Diagnosis/Problem Syncope Subjective Update: Continues to feel weak and shaky today. No chest pain or SOB. No abdominal pain. Feels chills today Functional Status: Reports: Pain Controlled, Tolerating Diet, Ambulating (with assistance), Urinating - Review of Systems General: Reports: Weakness. Denies: Fatigue, Malaise HEENT: Reports: No Symptoms. Denies: Headaches, Sore Throat Pulmonary: Reports: No Symptoms. Denies: Shortness of Breath Cardiovascular: Reports: No Symptoms. Denies: Chest Pain Gastrointestinal: Reports: No Symptoms. Denies: Abdominal Pain, Nausea, Vomiting Genitourinary: Reports: No Symptoms. Denies: Dysuria, Frequency, Burning Musculoskeletal: Reports: No Symptoms Skin: Reports: No Symptoms Neurological: Reports: Difficulty Walking, Weakness Psychiatric: Reports: No Symptoms - Patient Data Vitals - Most Recent: Last Vital Signs Temp 98.7 F 05/08/20 08:00 Pulse 86 05/08/20 08:00 Resp 18 05/08/20 08:00 BP 129/97 H 05/08/20 08:00 Pulse Ox 97 05/08/20 10:00 Orthostatic Blood Pressure [ 138/71 Standing] Orthostatic Blood Pressure [ 135/71 Sitting] Orthostatic Blood Pressure [ 126/75 Supine] Weight - Most Recent: 74.5 kg I&O - Last 24 Hours: Intake & Output 05/07/20 05/08/20 05/08/20 22:59 06:59 14:59 Intake Total 1912 Output Total 2175 Balance -263 Lab Results Last 24 Hours: Laboratory Results - last 24 hr 05/07/20 05/07/20 05/07/20 Range/Units 13:45 13:45 13:45 WBC 3.45 L (4.0-11.0) K/uL RBC 3.86 L (4.50-5.90) M/uL Hgb 13.7 (13.0-17.0) g/dL Hct 39.2 (38.0-50.0) % MCV 101.6 H (80.0-98.0) fL MCH 35.5 H (27.0-32.0) pg MCHC 34.9 (31.0-37.0) g/dL RDW Std Deviation 48.3 (28.0-62.0) fl RDW Coeff of [place] 13 (11.0-15.0) % Plt Count 100 L (150-400) K/uL MPV 9.60 (7.40-12.00) fL Neut % (Auto) 58.2 (48.0-80.0) % Lymph % (Auto) 29.3 (16.0-40.0) % [place] % (Auto) 11.3 (0.0-15.0) % Eos % (Auto) 0.9 (0.0-7.0) % Baso % (Auto) 0.3 (0.0-1.5) % Neut # (Auto) 2.0 (1.4-5.7) K/uL Lymph # (Auto) 1.0 (0.6-2.4) K/uL [place] # (Auto) 0.4 (0.0-0.8) K/uL Eos # (Auto) 0.0 (0.0-0.7) K/uL Baso # (Auto) 0.0 (0.0-0.1) K/uL Nucleated RBC % 0.0 /100WBC Nucleated RBCs # 0 K/uL INR Sodium 140 (136-148) mmol/L Potassium 3.8 (3.5-5.1) mmol/L Chloride 101 (98-107) mmol/L Carbon Dioxide 25.4 (21.0-32.0) mmol/L BUN 3 L (7.0-18.0) mg/dL Creatinine 0.6 L (0.8-1.3) mg/dL Est Cr Clr Drug Dosing TNP Estimated GFR (MDRD) > 60.0 ml/min Glucose 105 (74-106) mg/dL POC Glucose (60-110) mg/dL Calcium 8.1 L (8.5-10.1) mg/dL Phosphorus (2.6-4.7) mg/dL Magnesium 1.2 L (1.8-2.4) mg/dL Total Bilirubin 1.3 H (0.2-1.0) mg/dL AST 131 H (15-37) IU/L ALT 99 H (14-63) IU/L Alkaline Phosphatase 84 (46-116) U/L Troponin I < 0.050 (0.000-0.056) ng/mL Total Protein 6.7 (6.4-8.2) g/dL Albumin 3.6 (3.4-5.0) g/dL Globulin 3.1 (2.6-4.0) g/dL Albumin/Globulin Ratio 1.2 (0.9-1.6) Lipase 100 (73-393) U/L Urine Color Urine Appearance Urine pH (5.0-8.0) Ur Specific [place] (1.001-1.035) Urine Protein (NEGATIVE) mg/dL Urine Glucose (UA) (NEGATIVE) mg/dL Urine Ketones (NEGATIVE) mg/dL Urine Occult Blood (NEGATIVE) Urine Nitrite (NEGATIVE) Urine Bilirubin (NEGATIVE) Urine Urobilinogen (<2.0) EU/dL Ur Leukocyte Esterase (NEGATIVE) Urine RBC (0-2/HPF) Urine WBC (0-5/HPF) Ur Epithelial Cells (NONE-FEW) Urine Bacteria (NEGATIVE) Urine Opiates Screen (NEGATIVE) Ur Oxycodone Screen (NEGATIVE) Urine Methadone Screen (NEGATIVE) Ur Barbiturates Screen (NEGATIVE) Ur Phencyclidine Scrn (NEGATIVE) Ur Amphetamine Screen (NEGATIVE) U Methamphetamines Scrn (NEGATIVE) U Benzodiazepines Scrn (NEGATIVE) U Cocaine Metab Screen (NEGATIVE) U Marijuana (THC) Screen (NEGATIVE) Ethyl Alcohol 91 mg/dL 05/07/20 05/07/20 05/07/20 Range/Units 13:45 13:47 14:35 WBC (4.0-11.0) K/uL RBC (4.50-5.90) M/uL Hgb (13.0-17.0) g/dL Hct (38.0-50.0) % MCV (80.0-98.0) fL MCH (27.0-32.0) pg MCHC (31.0-37.0) g/dL RDW Std Deviation (28.0-62.0) fl RDW Coeff of [place] (11.0-15.0) % Plt Count (150-400) K/uL MPV (7.40-12.00) fL Neut % (Auto) (48.0-80.0) % Lymph % (Auto) (16.0-40.0) % [place] % (Auto) (0.0-15.0) % Eos % (Auto) (0.0-7.0) % Baso % (Auto) (0.0-1.5) % Neut # (Auto) (1.4-5.7) K/uL Lymph # (Auto) (0.6-2.4) K/uL [place] # (Auto) (0.0-0.8) K/uL Eos # (Auto) (0.0-0.7) K/uL Baso # (Auto) (0.0-0.1) K/uL Nucleated RBC % /100WBC Nucleated RBCs # K/uL INR Sodium (136-148) mmol/L Potassium (3.5-5.1) mmol/L Chloride (98-107) mmol/L Carbon Dioxide (21.0-32.0) mmol/L BUN (7.0-18.0) mg/dL Creatinine (0.8-1.3) mg/dL Est Cr Clr Drug Dosing Estimated GFR (MDRD) ml/min Glucose (74-106) mg/dL POC Glucose 108 (60-110) mg/dL Calcium (8.5-10.1) mg/dL Phosphorus 4.2 (2.6-4.7) mg/dL Magnesium (1.8-2.4) mg/dL Total Bilirubin (0.2-1.0) mg/dL AST (15-37) IU/L ALT (14-63) IU/L Alkaline Phosphatase (46-116) U/L Troponin I (0.000-0.056) ng/mL Total Protein (6.4-8.2) g/dL Albumin (3.4-5.0) g/dL Globulin (2.6-4.0) g/dL Albumin/Globulin Ratio (0.9-1.6) Lipase (73-393) U/L Urine Color Urine Appearance Urine pH (5.0-8.0) Ur Specific [place] (1.001-1.035) Urine Protein (NEGATIVE) mg/dL Urine Glucose (UA) (NEGATIVE) mg/dL Urine Ketones (NEGATIVE) mg/dL Urine Occult Blood (NEGATIVE) Urine Nitrite (NEGATIVE) Urine Bilirubin (NEGATIVE) Urine Urobilinogen (<2.0) EU/dL Ur Leukocyte Esterase (NEGATIVE) Urine RBC (0-2/HPF) Urine WBC (0-5/HPF) Ur Epithelial Cells (NONE-FEW) Urine Bacteria (NEGATIVE) Urine Opiates Screen NEGATIVE (NEGATIVE) Ur Oxycodone Screen NEGATIVE (NEGATIVE) Urine Methadone Screen NEGATIVE (NEGATIVE) Ur Barbiturates Screen NEGATIVE (NEGATIVE) Ur Phencyclidine Scrn NEGATIVE (NEGATIVE) Ur Amphetamine Screen NEGATIVE (NEGATIVE) U Methamphetamines Scrn NEGATIVE (NEGATIVE) U Benzodiazepines Scrn NEGATIVE (NEGATIVE) U Cocaine Metab Screen NEGATIVE (NEGATIVE) U Marijuana (THC) Screen NEGATIVE (NEGATIVE) Ethyl Alcohol mg/dL 05/07/20 05/08/20 05/08/20 Range/Units 14:35 05:35 05:35 WBC 5.18 (4.0-11.0) K/uL RBC 3.86 L (4.50-5.90) M/uL Hgb 13.6 (13.0-17.0) g/dL Hct 39.4 (38.0-50.0) % MCV 102.1 H (80.0-98.0) fL MCH 35.2 H (27.0-32.0) pg MCHC 34.5 (31.0-37.0) g/dL RDW Std Deviation 48.2 (28.0-62.0) fl RDW Coeff of [place] 13 (11.0-15.0) % Plt Count 95 L (150-400) K/uL MPV 9.70 (7.40-12.00) fL Neut % (Auto) 65.1 (48.0-80.0) % Lymph % (Auto) 21.4 (16.0-40.0) % [place] % (Auto) 12.5 (0.0-15.0) % Eos % (Auto) 0.8 (0.0-7.0) % Baso % (Auto) 0.2 (0.0-1.5) % Neut # (Auto) 3.4 (1.4-5.7) K/uL Lymph # (Auto) 1.1 (0.6-2.4) K/uL [place] # (Auto) 0.7 (0.0-0.8) K/uL Eos # (Auto) 0.0 (0.0-0.7) K/uL Baso # (Auto) 0.0 (0.0-0.1) K/uL Nucleated RBC % 0.0 /100WBC Nucleated RBCs # 0 K/uL INR Sodium 139 (136-148) mmol/L Potassium 3.6 (3.5-5.1) mmol/L Chloride 99 (98-107) mmol/L Carbon Dioxide 31.3 (21.0-32.0) mmol/L BUN 4 L (7.0-18.0) mg/dL Creatinine 0.6 L (0.8-1.3) mg/dL Est Cr Clr Drug Dosing 121.92 Estimated GFR (MDRD) > 60.0 ml/min Glucose 85 (74-106) mg/dL POC Glucose (60-110) mg/dL Calcium 7.4 L (8.5-10.1) mg/dL Phosphorus 2.7 (2.6-4.7) mg/dL Magnesium 1.6 L (1.8-2.4) mg/dL Total Bilirubin 1.8 H (0.2-1.0) mg/dL AST 112 H (15-37) IU/L ALT 96 H (14-63) IU/L Alkaline Phosphatase 77 (46-116) U/L Troponin I (0.000-0.056) ng/mL Total Protein 6.3 L (6.4-8.2) g/dL Albumin 3.3 L (3.4-5.0) g/dL Globulin 3.0 (2.6-4.0) g/dL Albumin/Globulin Ratio 1.1 (0.9-1.6) Lipase (73-393) U/L Urine Color YELLOW Urine Appearance CLEAR Urine pH 6.5 (5.0-8.0) Ur Specific [place] 1.020 (1.001-1.035) Urine Protein NEGATIVE (NEGATIVE) mg/dL Urine Glucose (UA) NEGATIVE (NEGATIVE) mg/dL Urine Ketones TRACE H (NEGATIVE) mg/dL Urine Occult Blood TRACE-INTACT H (NEGATIVE) Urine Nitrite NEGATIVE (NEGATIVE) Urine Bilirubin NEGATIVE (NEGATIVE) Urine Urobilinogen 1.0 (<2.0) EU/dL Ur Leukocyte Esterase NEGATIVE (NEGATIVE) Urine RBC 0-4 (0-2/HPF) Urine WBC 0-2 (0-5/HPF) Ur Epithelial Cells RARE (NONE-FEW) Urine Bacteria RARE (NEGATIVE) Urine Opiates Screen (NEGATIVE) Ur Oxycodone Screen (NEGATIVE) Urine Methadone Screen (NEGATIVE) Ur Barbiturates Screen (NEGATIVE) Ur Phencyclidine Scrn (NEGATIVE) Ur Amphetamine Screen (NEGATIVE) U Methamphetamines Scrn (NEGATIVE) U Benzodiazepines Scrn (NEGATIVE) U Cocaine Metab Screen (NEGATIVE) U Marijuana (THC) Screen (NEGATIVE) Ethyl Alcohol mg/dL 05/08/20 Range/Units 05:35 WBC (4.0-11.0) K/uL RBC (4.50-5.90) M/uL Hgb (13.0-17.0) g/dL Hct (38.0-50.0) % MCV (80.0-98.0) fL MCH (27.0-32.0) pg MCHC (31.0-37.0) g/dL RDW Std Deviation (28.0-62.0) fl RDW Coeff of [place] (11.0-15.0) % Plt Count (150-400) K/uL MPV (7.40-12.00) fL Neut % (Auto) (48.0-80.0) % Lymph % (Auto) (16.0-40.0) % [place] % (Auto) (0.0-15.0) % Eos % (Auto) (0.0-7.0) % Baso % (Auto) (0.0-1.5) % Neut # (Auto) (1.4-5.7) K/uL Lymph # (Auto) (0.6-2.4) K/uL [place] # (Auto) (0.0-0.8) K/uL Eos # (Auto) (0.0-0.7) K/uL Baso # (Auto) (0.0-0.1) K/uL Nucleated RBC % /100WBC Nucleated RBCs # K/uL INR 1.03 Sodium (136-148) mmol/L Potassium (3.5-5.1) mmol/L Chloride (98-107) mmol/L Carbon Dioxide (21.0-32.0) mmol/L BUN (7.0-18.0) mg/dL Creatinine (0.8-1.3) mg/dL Est Cr Clr Drug Dosing Estimated GFR (MDRD) ml/min Glucose (74-106) mg/dL POC Glucose (60-110) mg/dL Calcium (8.5-10.1) mg/dL Phosphorus (2.6-4.7) mg/dL Magnesium (1.8-2.4) mg/dL Total Bilirubin (0.2-1.0) mg/dL AST (15-37) IU/L ALT (14-63) IU/L Alkaline Phosphatase (46-116) U/L Troponin I (0.000-0.056) ng/mL Total Protein (6.4-8.2) g/dL Albumin (3.4-5.0) g/dL Globulin (2.6-4.0) g/dL Albumin/Globulin Ratio (0.9-1.6) Lipase (73-393) U/L Urine Color Urine Appearance Urine pH (5.0-8.0) Ur Specific [place] (1.001-1.035) Urine Protein (NEGATIVE) mg/dL Urine Glucose (UA) (NEGATIVE) mg/dL Urine Ketones (NEGATIVE) mg/dL Urine Occult Blood (NEGATIVE) Urine Nitrite (NEGATIVE) Urine Bilirubin (NEGATIVE) Urine Urobilinogen (<2.0) EU/dL Ur Leukocyte Esterase (NEGATIVE) Urine RBC (0-2/HPF) Urine WBC (0-5/HPF) Ur Epithelial Cells (NONE-FEW) Urine Bacteria (NEGATIVE) Urine Opiates Screen (NEGATIVE) Ur Oxycodone Screen (NEGATIVE) Urine Methadone Screen (NEGATIVE) Ur Barbiturates Screen (NEGATIVE) Ur Phencyclidine Scrn (NEGATIVE) Ur Amphetamine Screen (NEGATIVE) U Methamphetamines Scrn (NEGATIVE) U Benzodiazepines Scrn (NEGATIVE) U Cocaine Metab Screen (NEGATIVE) U Marijuana (THC) Screen (NEGATIVE) Ethyl Alcohol mg/dL Med Orders - Current: Current Medications Acetaminophen (Tylenol) 650 mg PO Q6H PRN PRN Reason: Pain Albuterol/Ipratropium (Duoneb 3.0-0.5 Mg/3 Ml) 3 ml NEB Q4HRRT PRN PRN Reason: Shortness Of Breath/wheezing Folic Acid (Folic Acid) 1 mg SUBCUT DAILY [facility] Last Admin: 05/08/20 09:40 Dose: 1 mg Documented by: Pantoprazole Sodium 40 mg/ (Sodium Chloride) 10 mls @ 300 mls/hr IV Q12H [facility] Last Admin: 05/08/20 04:31 Dose: 300 mls/hr Documented by: Thiamine HCl 500 mg/ Sodium (Chloride) 255 mls @ 510 mls/hr IV TID KARON Last Admin: 05/08/20 05:40 Dose: 510 mls/hr Documented by: Sodium Chloride (Normal Saline) 1,000 mls @ 100 mls/hr IV Q10H [facility] Last Admin: 05/08/20 09:32 Dose: 100 mls/hr Documented by: Lorazepam (Ativan) 0 mg IV Q4H PRN; Protocol PRN Reason: CIWAA Last Admin: 05/08/20 00:43 Dose: 1 mg Documented by: Lorazepam (Ativan) 0 mg PO Q4H PRN; Protocol PRN Reason: CIWAA Last Admin: 05/07/20 20:40 Dose: 1 mg Documented by: Ondansetron HCl (Zofran) 4 mg IVPUSH Q4H PRN PRN Reason: Nausea Sodium Chloride (Saline Flush) 2.5 ml FLUSH ASDIRECTED PRN PRN Reason: Keep Vein Open Last Admin: 05/07/20 14:15 Dose: 2.5 ml Documented by: Discontinued Medications Sodium Chloride (Normal Saline) 1,000 mls @ 999 mls/hr IV STAT ONE Stop: 05/07/20 14:46 Last Admin: 05/07/20 14:06 Dose: 999 mls/hr Documented by: Magnesium Sulfate 2 gm/ Premix 50 mls @ 50 mls/hr IV ONETIME ONE Stop: 05/07/20 16:02 Last Admin: 05/07/20 15:16 Dose: 50 mls/hr Documented by: Multivitamins/Minerals 10 ml/Thiamine HCl 100 mg/ Folic Acid 1 mg/ Sodium Chloride 1,011.2 mls @ 150 mls/hr IV ONETIME ONE Stop: 05/07/20 21:55 Last Admin: 05/07/20 15:31 Dose: 150 mls/hr Documented by: Sodium Chloride (Normal Saline) 1,000 mls @ 100 mls/hr IV Q10H [facility] Last Admin: 05/07/20 23:18 Dose: Not Given Documented by: Magnesium Sulfate 2 gm/ Premix 50 mls @ 50 mls/hr IV ONETIME ONE Stop: 05/07/20 17:29 Last Admin: 05/07/20 18:24 Dose: 50 mls/hr Documented by: Sodium Chloride (Normal Saline) 1,000 mls @ 100 mls/hr IV Q10H K[facility]ON Magnesium Sulfate 4 gm/ Premix 100 mls @ 50 mls/hr IV ONETIME ONE Stop: 05/08/20 09:55 Last Admin: 05/08/20 09:38 Dose: 50 mls/hr Documented by: Lorazepam (Ativan) 1 mg IVPUSH ONETIME ONE Stop: 05/07/20 14:44 Last Admin: 05/07/20 20:56 Dose: Not Given Documented by: Ondansetron HCl (Zofran) 4 mg IVPUSH ONETIME ONE Stop: 05/07/20 13:47 Last Admin: 05/07/20 14:06 Dose: 4 mg Documented by: Sodium Chloride (Saline Flush) 10 ml FLUSH ASDIRECTED PRN PRN Reason: Keep Vein Open Last Admin: 05/07/20 14:15 Dose: 10 ml Documented by: - Exam General: Alert, Oriented, Cooperative, No Acute Distress Lungs: Clear to Auscultation, Normal Respiratory Effort Cardiovascular: Regular Rate, Regular Rhythm GI/Abdominal Exam: Normal Bowel Sounds, Soft, Non-Tender, No Organomegaly Extremities: Normal Inspection, Normal Range of Motion, Non-Tender, No Pedal Edema Skin: Other (bruising noted to arms) Wound/Incisions: Healing Well Neurological: No: Normal Gait (ataxia) Psy/Mental Status: Alert, Normal Affect, Normal Mood, Withdrawal Symptoms Sepsis Event Note - Evaluation Sepsis Screening Result: No Definite Risk - Focused Exam Vital Signs: Vital Signs Temp Pulse Resp BP Pulse Ox Pulse Ox 05/08/20 10:00 97 05/08/20 08:00 98.7 F 86 18 129/97 H 96 05/08/20 04:11 97.9 F 78 18 128/79 95 05/07/20 23:15 99.0 F 88 18 149/83 H 94 L Date Exam was Performed: 05/08/20 Time Exam was Performed: 10:52 - Problem List & Annotations (1) History of GI bleed SNOMED Code(s): 636665884 Code(s): Z87.19 - PERSONAL HISTORY OF OTHER DISEASES OF THE DIGESTIVE SYSTEM Status: Acute Current Visit: Yes (2) Alcohol abuse SNOMED Code(s): 04073709 Code(s): F10.10 - ALCOHOL ABUSE, UNCOMPLICATED Status: Acute Current Visit: Yes (3) Wernicke's syndrome SNOMED Code(s): 09752815 Code(s): E51.2 - WERNICKE'S ENCEPHALOPATHY Status: Acute Current Visit: Yes (4) Transaminitis SNOMED Code(s): 293450616, 383206871 Code(s): R74.0 - NONSPEC ELEV OF LEVELS OF TRANSAMNS & LACTIC ACID DEHYDRGNSE Status: Acute Current Visit: Yes (5) Hyperbilirubinemia SNOMED Code(s): 55724567 Code(s): E80.6 - OTHER DISORDERS OF BILIRUBIN METABOLISM Status: Acute Current Visit: Yes (6) Thrombocytopenia SNOMED Code(s): 576127984 Code(s): D69.6 - THROMBOCYTOPENIA, UNSPECIFIED Status: Acute Current Visit: Yes (7) Alcohol withdrawal SNOMED Code(s): 115589611 Code(s): F10.239 - ALCOHOL DEPENDENCE WITH WITHDRAWAL, UNSPECIFIED Status: Acute Current Visit: Yes Qualifiers: Complication of substance-induced condition: uncomplicated Qualified Code(s): F10.230 - Alcohol dependence with withdrawal, uncomplicated (8) Hypomagnesemia SNOMED Code(s): 259873575 Code(s): E83.42 - HYPOMAGNESEMIA Status: Acute Current Visit: Yes (9) Syncope SNOMED Code(s): 320941088 Code(s): R55 - SYNCOPE AND COLLAPSE Status: Acute Current Visit: Yes Qualifiers: Syncope type: unspecified Qualified Code(s): R55 - Syncope and collapse - Problem List Review Problem List Initiated/Reviewed/Updated: Yes - My Orders Last 24 Hours: My Active Orders 05/07/20 15:19 Telemetry Monitoring [Cardiac Monitoring] [RC] Q8H 05/07/20 15:23 HEPATITIS PANEL (4) [REF] Urgent 05/07/20 Dinner Regular Diet [DIET] 05/07/20 16:04 Antiembolic Devices [RC] PER UNIT ROUTINE Intake and Output [RC] Q12H Oxygen Therapy [RC] PRN Up With Assistance [RC] ASDIRECTED VTE/DVT Education [RC] DAILY Vital Signs [RC] Q4H Albuterol/Ipratropium [DuoNeb 3.0-0.5 MG/3 ML] 3 ml NEB Q4HRRT PRN LORazepam [Ativan] See Protocol IV Q4H PRN Ondansetron [Zofran] 4 mg IVPUSH Q4H PRN Sequential Compression Device [OM.PC] Per Unit Routine Resuscitation Status Routine 05/07/20 16:06 RT Aerosol Therapy [RC] ASDIRECTED 05/07/20 16:07 CIWAA Assessment [RC] Q4H LORazepam [Ativan] See Protocol PO Q4H PRN 05/07/20 16:15 Pantoprazole [ProTONIX IV] 40 mg Sodium Chloride 0.9% [Normal Saline] 10 ml IV Q12H 05/07/20 16:16 Obtain Past Medical Record [OM.PC] Routine 05/07/20 16:33 Orthostatic Vital Signs [RC] Q12H 05/07/20 16:50 Consult to Physical Therapy [PT Evaluation and Treatment] [CONS] Routine 05/07/20 22:00 Sodium Chloride 0.9% [Normal Saline] 1,000 ml IV Q10H Thiamine [Vitamin B-1] 500 mg Sodium Chloride 0.9% [Normal Saline] 250 ml IV TID 05/08/20 07:46 Acetaminophen [Tylenol] 650 mg PO Q6H PRN 05/08/20 09:00 Folic Acid 1 mg SUBCUT DAILY 05/08/20 09:30 CORONAVIRUS COVID-19 PCR PHL Urgent 05/08/20 09:33 Brain w wo Cont [MR] Urgent 05/08/20 09:34 Ang Head wo Cont [MR] Routine Ang Neck w Cont [MR] Routine 05/08/20 09:44 Patient Status [ADT] Stat 05/08/20 16:11 Echo Comp wo Cont [US] Urgent - Plan Plan:: This 65 year old male admitted with alcohol withdrawal, suspected wernicke's, syncope and electrolyte abnormalities 1. Alcohol withdrawal, suspected Wernicke's - CIWAA assessment with Ativan PRN - Thiamine 500 mg IV TID x 2 days then 250 mg IV/IM daily for 5 more days. Monitor response in am - Folic acid daily - Monitor closely - Supplement electrolytes as needed, will repeat Magnesium IV today. - Phosphorus WNL 2. Syncope - Carotid US shows mild plaque, no velocity changes and ECHO pending - Monitor on telemetry - HR elevates with activity, improved today, 120s with activity vs 140-150 yesterday - Obtain Orthostatics, no hypotension noted, elevated HR as state above - Continue NS 100 ml/hr today - Obtian MRI/ MRA head and neck rule out CVA 3. Transaminitis/hyperbilirubinemia - RUQ US shows fatty infiltration - Hepatitis panel pending - Counseled heavily on alcohol use and the need for sobriety - Transaminitis slowly improving 4. Thrombocytopenia: -Monitor closely, likely secondary to alcohol use 5. Recent GI bleeding? - obtain records from [facility] - Protonix Q12h for now and monitor stools - Denies dark or bloody stools now. VTE prophylaxis: SCDs only Dispo: change to inpatient due to continue ataxia and need treatment with thiamine and PT.
[2020-05-08] MEDS: LORazepam 1 MG Tab PO PRN ×2 (13:14→19:09)
[2020-05-08] MEDS ORDERED: Gadobenate Dimeglumine 529 MG/ML 20 ML SDV IVPUSH STA (17:01)
--- NOTE | 2020-05-08 17:15 | MR ---
MR angiogram of brain Technique: Multiple angiographic images were obtained centered to the [place]. Multiple MIP images were obtained. Findings: Very small right vertebral artery with dominant left vertebral artery which I believe represents a normal variant. Basilar artery is supplied mostly by the left vertebral artery. Normal flow is seen into the posterior cerebral arteries. Distal internal carotid arteries are patent into the middle cerebral arteries and anterior cerebral arteries. No discrete stenosis or occlusion is seen. No discrete aneurysm is identified. Impression: 1. Very small right vertebral artery with dominant left vertebral artery which I believe is normal variant. 2. No additional abnormality is appreciated on MR angiogram of the brain. Diagnostic code #2 Study was dictated in MDT
--- NOTE | 2020-05-08 19:02 | MR ---
MRI brain Technique: T1 sagittal and coronal; T1, T2, FLAIR and diffusion axial images through the brain were obtained. Comparison: Prior head CT study of 05/07/20. Findings: Ventricles along with basal cisterns and sulci over the convexities are mildly prominent. Mild motion artifact is noted on several sequences. No abnormal signal is seen within the brain parenchyma. No midline shift or mass effect is seen. No acute diffusion abnormalities are seen. Impression: 1. Nothing acute is appreciated on MRI study of the brain. Mild motion artifact is present. Diagnostic code #2 Study was dictated in MDT
[2020-05-08] MEDS: Nicotine 14 MG/24 Hr Patch TRDERM SCH (21:33)
[2020-05-09] MEDS: LORazepam 2 MG/ML SDV IV PRN ×6 (02:03→23:03)
[2020-05-09] MEDS: Pantoprazole 40 MG in Sodium Chloride 0.9% 10 ML IV SCH ×2 (04:24→16:56)
[2020-05-09] MEDS: Thiamine 500 MG in Sodium Chloride 0.9% 250 ML IV SCH ×3 (05:22→21:13)
[2020-05-09 06:34] LABS: HEMOGLOBIN A1C 5.2 % (4.5-6.2)
[2020-05-09] MEDS: Sodium Chloride 0.9% 1,000 ML IV SCH (06:46)
[2020-05-09 06:54] LABS: BLOOD UREA NITROGEN,BUN 2 mg/dL (7.0-18.0); CARBON DIOXIDE,CO2 26.4 mmol/L (21.0-32.0); CHLORIDE,CL 98 mmol/L (98-107); GLUCOSE RANDOM 117 mg/dL (74-106); SODIUM,NA 136 mmol/L (136-148)
[2020-05-09] MEDS ORDERED: Magnesium Sulfate/Water 4 GM in Premix Bag 1 BAG IV ONE (08:02)
[2020-05-09] MEDS ORDERED: Sodium Chloride 0.9% with KCl 1,000 ML IV ONE ×2 (08:02→11:30)
--- NOTE | 2020-05-09 08:46 | PCM.PN ---
- General Info Date of Service: 05/09/20 Admission Dx/Problem (Free Text): Admission Diagnosis/Problem Admission Diagnosis/Problem Syncope Subjective Update: Feeling improved today, get chills intermittently. No fevers. Feeling better than when he first came in. Still weak but better. Talking about changing life style and drinking NA beer and whiskey. Functional Status: Reports: Pain Controlled, Tolerating Diet, Ambulating - Review of Systems General: Reports: Weakness. Denies: Fever HEENT: Reports: No Symptoms. Denies: Headaches, Sore Throat, Visual Changes Pulmonary: Reports: No Symptoms. Denies: Shortness of Breath Cardiovascular: Reports: No Symptoms. Denies: Chest Pain Gastrointestinal: Reports: No Symptoms. Denies: Abdominal Pain, Nausea, Vomiting Genitourinary: Reports: No Symptoms Musculoskeletal: Reports: No Symptoms Skin: Reports: No Symptoms Neurological: Reports: Tremors, Difficulty Walking, Weakness Psychiatric: Reports: No Symptoms - Patient Data Vitals - Most Recent: Last Vital Signs Temp 98.6 F 05/09/20 07:30 Pulse 94 05/09/20 07:30 Resp 16 05/09/20 07:30 BP 146/70 H 05/09/20 07:30 Pulse Ox 98 05/09/20 07:30 Orthostatic Blood Pressure [ 122/68 Standing] Orthostatic Blood Pressure [ 120/65 Sitting] Orthostatic Blood Pressure [ 120/60 Supine] Weight - Most Recent: 74.5 kg I&O - Last 24 Hours: Intake & Output 05/08/20 05/09/20 05/09/20 22:59 06:59 14:59 Intake Total 2412 3170 Output Total 1675 1420 Balance 737 1390 Lab Results Last 24 Hours: Laboratory Results - last 24 hr 05/09/20 05/09/20 05/09/20 Range/Units 01:36 06:00 06:00 WBC 5.61 (4.0-11.0) K/uL RBC 3.82 L (4.50-5.90) M/uL Hgb 13.4 (13.0-17.0) g/dL Hct 38.8 (38.0-50.0) % MCV 101.6 H (80.0-98.0) fL MCH 35.1 H (27.0-32.0) pg MCHC 34.5 (31.0-37.0) g/dL RDW Std Deviation 47.6 (28.0-62.0) fl RDW Coeff of Adenike 13 (11.0-15.0) % Plt Count 89 L (150-400) K/uL MPV 9.60 (7.40-12.00) fL Neut % (Auto) 58.1 (48.0-80.0) % Lymph % (Auto) 26.6 (16.0-40.0) % [place] % (Auto) 13.7 (0.0-15.0) % Eos % (Auto) 1.4 (0.0-7.0) % Baso % (Auto) 0.2 (0.0-1.5) % Neut # (Auto) 3.3 (1.4-5.7) K/uL Lymph # (Auto) 1.5 (0.6-2.4) K/uL [place] # (Auto) 0.8 (0.0-0.8) K/uL Eos # (Auto) 0.1 (0.0-0.7) K/uL Baso # (Auto) 0.0 (0.0-0.1) K/uL Nucleated RBC % 0.0 /100WBC Nucleated RBCs # 0 K/uL Sodium 136 (136-148) mmol/L Potassium 3.0 L (3.5-5.1) mmol/L Chloride 98 (98-107) mmol/L Carbon Dioxide 26.4 (21.0-32.0) mmol/L BUN 2 L (7.0-18.0) mg/dL Creatinine 0.6 L (0.8-1.3) mg/dL Est Cr Clr Drug Dosing 121.92 mL/min Estimated GFR (MDRD) > 60.0 ml/min Glucose 117 H (74-106) mg/dL Hemoglobin A1c (4.5-6.2) % Calcium 7.5 L (8.5-10.1) mg/dL Phosphorus 1.8 L (2.6-4.7) mg/dL Magnesium 1.5 L (1.8-2.4) mg/dL Total Bilirubin 2.2 H (0.2-1.0) mg/dL AST 67 H (15-37) IU/L ALT 70 H (14-63) IU/L Alkaline Phosphatase 80 (46-116) U/L Total Protein 6.1 L (6.4-8.2) g/dL Albumin 3.3 L (3.4-5.0) g/dL Globulin 2.8 (2.6-4.0) g/dL Albumin/Globulin Ratio 1.2 (0.9-1.6) Triglycerides 58 (0-200) mg/dL Cholesterol 194 (50-200) mg/dL LDL Cholesterol, Calc 88 (60-180) mg/dL VLDL Cholesterol 11 (5-55) mg/dL HDL Cholesterol 94 H (40-60) mg/dL Cholesterol/HDL Ratio 2.1 L (3.3-6.0) TSH 3rd Generation 2.72 (0.36-3.74) uIU/mL SARS-CoV-2 RNA (RT-PCR) NEGATIVE (NEGATIVE) 05/09/20 Range/Units 06:00 WBC (4.0-11.0) K/uL RBC (4.50-5.90) M/uL Hgb (13.0-17.0) g/dL Hct (38.0-50.0) % MCV (80.0-98.0) fL MCH (27.0-32.0) pg MCHC (31.0-37.0) g/dL RDW Std Deviation (28.0-62.0) fl RDW Coeff of Adenike (11.0-15.0) % Plt Count (150-400) K/uL MPV (7.40-12.00) fL Neut % (Auto) (48.0-80.0) % Lymph % (Auto) (16.0-40.0) % [place] % (Auto) (0.0-15.0) % Eos % (Auto) (0.0-7.0) % Baso % (Auto) (0.0-1.5) % Neut # (Auto) (1.4-5.7) K/uL Lymph # (Auto) (0.6-2.4) K/uL [place] # (Auto) (0.0-0.8) K/uL Eos # (Auto) (0.0-0.7) K/uL Baso # (Auto) (0.0-0.1) K/uL Nucleated RBC % /100WBC Nucleated RBCs # K/uL Sodium (136-148) mmol/L Potassium (3.5-5.1) mmol/L Chloride (98-107) mmol/L Carbon Dioxide (21.0-32.0) mmol/L BUN (7.0-18.0) mg/dL Creatinine (0.8-1.3) mg/dL Est Cr Clr Drug Dosing mL/min Estimated GFR (MDRD) ml/min Glucose (74-106) mg/dL Hemoglobin A1c 5.2 (4.5-6.2) % Calcium (8.5-10.1) mg/dL Phosphorus (2.6-4.7) mg/dL Magnesium (1.8-2.4) mg/dL Total Bilirubin (0.2-1.0) mg/dL AST (15-37) IU/L ALT (14-63) IU/L Alkaline Phosphatase (46-116) U/L Total Protein (6.4-8.2) g/dL Albumin (3.4-5.0) g/dL Globulin (2.6-4.0) g/dL Albumin/Globulin Ratio (0.9-1.6) Triglycerides (0-200) mg/dL Cholesterol (50-200) mg/dL LDL Cholesterol, Calc (60-180) mg/dL VLDL Cholesterol (5-55) mg/dL HDL Cholesterol (40-60) mg/dL Cholesterol/HDL Ratio (3.3-6.0) TSH 3rd Generation (0.36-3.74) uIU/mL SARS-CoV-2 RNA (RT-PCR) (NEGATIVE) Med Orders - Current: Current Medications Acetaminophen (Tylenol) 650 mg PO Q6H PRN PRN Reason: Pain Albuterol/Ipratropium (Duoneb 3.0-0.5 Mg/3 Ml) 3 ml NEB Q4HRRT PRN PRN Reason: Shortness Of Breath/wheezing Folic Acid (Folic Acid) 1 mg SUBCUT DAILY [facility] Last Admin: 05/08/20 09:40 Dose: 1 mg Documented by: Pantoprazole Sodium 40 mg/ (Sodium Chloride) 10 mls @ 300 mls/hr IV Q12H [facility] Last Admin: 05/09/20 04:24 Dose: 300 mls/hr Documented by: Thiamine HCl 500 mg/ Sodium (Chloride) 255 mls @ 510 mls/hr IV TID [facility] Last Admin: 05/09/20 05:22 Dose: 510 mls/hr Documented by: Potassium Chloride/Sodium Chloride (Normal Saline With 40 Meq Kcl) 1,000 mls @ 125 mls/hr IV ONETIME ONE Stop: 05/09/20 16:01 Magnesium Sulfate 4 gm/ Premix 100 mls @ 50 mls/hr IV ONETIME ONE Stop: 05/09/20 10:01 Lorazepam (Ativan) 0 mg IV Q4H PRN; Protocol PRN Reason: CIWAA Last Admin: 05/09/20 07:13 Dose: 1 mg Documented by: Lorazepam (Ativan) 0 mg PO Q4H PRN; Protocol PRN Reason: CIWAA Last Admin: 05/08/20 19:09 Dose: 1 mg Documented by: Nicotine (Habitrol) 14 mg TRDERM DAILY [facility] Last Admin: 05/08/20 21:33 Dose: 14 mg Documented by: Ondansetron HCl (Zofran) 4 mg IVPUSH Q4H PRN PRN Reason: Nausea Sodium Chloride (Saline Flush) 2.5 ml FLUSH ASDIRECTED PRN PRN Reason: Keep Vein Open Last Admin: 05/07/20 14:15 Dose: 2.5 ml Documented by: Discontinued Medications Gadobenate Dimeglumine (Multihance) 20 ml IVPUSH ONETIME STA Stop: 05/08/20 17:02 Last Admin: 05/08/20 17:03 Dose: 13 ml Documented by: Sodium Chloride (Normal Saline) 1,000 mls @ 999 mls/hr IV STAT ONE Stop: 05/07/20 14:46 Last Admin: 05/07/20 14:06 Dose: 999 mls/hr Documented by: Magnesium Sulfate 2 gm/ Premix 50 mls @ 50 mls/hr IV ONETIME ONE Stop: 05/07/20 16:02 Last Admin: 05/07/20 15:16 Dose: 50 mls/hr Documented by: Multivitamins/Minerals 10 ml/Thiamine HCl 100 mg/ Folic Acid 1 mg/ Sodium Chloride 1,011.2 mls @ 150 mls/hr IV ONETIME ONE Stop: 05/07/20 21:55 Last Admin: 05/07/20 15:31 Dose: 150 mls/hr Documented by: Sodium Chloride (Normal Saline) 1,000 mls @ 100 mls/hr IV Q10H [facility] Last Admin: 05/07/20 23:18 Dose: Not Given Documented by: Magnesium Sulfate 2 gm/ Premix 50 mls @ 50 mls/hr IV ONETIME ONE Stop: 05/07/20 17:29 Last Admin: 05/07/20 18:24 Dose: 50 mls/hr Documented by: Sodium Chloride (Normal Saline) 1,000 mls @ 100 mls/hr IV Q10H [facility] Sodium Chloride (Normal Saline) 1,000 mls @ 100 mls/hr IV Q10H [facility] Last Admin: 05/09/20 06:46 Dose: Not Given Documented by: Magnesium Sulfate 4 gm/ Premix 100 mls @ 50 mls/hr IV ONETIME ONE Stop: 05/08/20 09:55 Last Admin: 05/08/20 09:38 Dose: 50 mls/hr Documented by: Lorazepam (Ativan) 1 mg IVPUSH ONETIME ONE Stop: 05/07/20 14:44 Last Admin: 05/07/20 20:56 Dose: Not Given Documented by: Ondansetron HCl (Zofran) 4 mg IVPUSH ONETIME ONE Stop: 05/07/20 13:47 Last Admin: 05/07/20 14:06 Dose: 4 mg Documented by: Sodium Chloride (Saline Flush) 10 ml FLUSH ASDIRECTED PRN PRN Reason: Keep Vein Open Last Admin: 05/07/20 14:15 Dose: 10 ml Documented by: - Exam General: Alert, Oriented, Cooperative, No Acute Distress Neck: Supple Lungs: Clear to Auscultation, Normal Respiratory Effort Cardiovascular: Regular Rate, Regular Rhythm GI/Abdominal Exam: Normal Bowel Sounds, Soft, Non-Tender Extremities: Normal Inspection, Normal Range of Motion, Non-Tender, No Pedal Edema Skin: Warm, Dry, Intact Neurological: No New Focal Deficit Psy/Mental Status: Alert, Normal Affect, Normal Mood, Withdrawal Symptoms Sepsis Event Note - Evaluation Sepsis Screening Result: No Definite Risk - Focused Exam Vital Signs: Vital Signs Temp Pulse Resp BP BP Pulse Ox 05/09/20 07:30 98.6 F 94 16 146/70 H 98 05/09/20 04:32 97.0 F 97 16 134/70 95 05/09/20 00:31 96.8 F L 82 18 142/69 H 98 Date Exam was Performed: 05/09/20 Time Exam was Performed: 10:05 - Problem List & Annotations (1) History of GI bleed SNOMED Code(s): 488747894 Code(s): Z87.19 - PERSONAL HISTORY OF OTHER DISEASES OF THE DIGESTIVE SYSTEM Status: Acute Current Visit: Yes (2) Alcohol abuse SNOMED Code(s): 88453937 Code(s): F10.10 - ALCOHOL ABUSE, UNCOMPLICATED Status: Acute Current Visit: Yes (3) Wernicke's syndrome SNOMED Code(s): 12322223 Code(s): E51.2 - WERNICKE'S ENCEPHALOPATHY Status: Acute Current Visit: Yes (4) Transaminitis SNOMED Code(s): 038488796, 102416246 Code(s): R74.0 - NONSPEC ELEV OF LEVELS OF TRANSAMNS & LACTIC ACID DEHYDRGNSE Status: Acute Current Visit: Yes (5) Hyperbilirubinemia SNOMED Code(s): 95861202 Code(s): E80.6 - OTHER DISORDERS OF BILIRUBIN METABOLISM Status: Acute Current Visit: Yes (6) Thrombocytopenia SNOMED Code(s): 385166700 Code(s): D69.6 - THROMBOCYTOPENIA, UNSPECIFIED Status: Acute Current Visit: Yes (7) Alcohol withdrawal SNOMED Code(s): 593216965 Code(s): F10.239 - ALCOHOL DEPENDENCE WITH WITHDRAWAL, UNSPECIFIED Status: Acute Current Visit: Yes Qualifiers: Complication of substance-induced condition: uncomplicated Qualified Code(s): F10.230 - Alcohol dependence with withdrawal, uncomplicated (8) Hypomagnesemia SNOMED Code(s): 724094098 Code(s): E83.42 - HYPOMAGNESEMIA Status: Acute Current Visit: Yes (9) Syncope SNOMED Code(s): 157185890 Code(s): R55 - SYNCOPE AND COLLAPSE Status: Acute Current Visit: Yes Qualifiers: Syncope type: unspecified Qualified Code(s): R55 - Syncope and collapse - Problem List Review Problem List Initiated/Reviewed/Updated: Yes - My Orders Last 24 Hours: My Active Orders 05/08/20 07:46 Acetaminophen [Tylenol] 650 mg PO Q6H PRN 05/08/20 09:00 Folic Acid 1 mg SUBCUT DAILY 05/08/20 09:44 Patient Status [ADT] Stat 05/08/20 16:11 Echo Comp wo Cont [US] Urgent 05/09/20 08:02 Magnesium Sulfate/Water [Magnesium Sulfate in Water Premix] 4 gm Premix Bag 1 bag IV ONETIME Sodium Chloride 0.9% with KCl [Normal Saline with 40 mEq KCl] 1,000 ml IV ONETIME 05/10/20 05:11 CBC WITH AUTO DIFF [HEME] AM COMPREHENSIVE METABOLIC PN,CMP [CHEM] AM MAGNESIUM [CHEM] AM PHOSPHORUS [CHEM] AM 05/11/20 05:11 CBC WITH AUTO DIFF [HEME] AM COMPREHENSIVE METABOLIC PN,CMP [CHEM] AM MAGNESIUM [CHEM] AM PHOSPHORUS [CHEM] AM - Plan Plan:: This 65 year old male admitted with alcohol withdrawal, suspected wernicke's, syncope and electrolyte abnormalities 1. Alcohol withdrawal, suspected Wernicke's - CIWAA assessment with Ativan PRN - Thiamine 250 to start tomorrow, daily - Folic acid daily - Monitor closely - Supplement electrolytes as needed, will repeat Magnesium 4 gm IV today along with 40 IV and PO KCl - Phosphorus 250 mg QID 2. Syncope - Carotid US shows mild plaque, no velocity changes and ECHO pending - Monitor on telemetry - MRI/ MRA head and neck negative, no CVA or atherosclerosis 3. Transaminitis/hyperbilirubinemia - RUQ US shows fatty infiltration - Hepatitis panel pending - Counseled heavily on alcohol use and the need for sobriety - Transaminitis slowly improving, bilirubin 2.2 today 4. Thrombocytopenia: -Monitor closely, likely secondary to alcohol use 5. Recent GI bleeding? - obtain records from [facility] - Protonix Q12h for now and monitor stools - Denies dark or bloody stools now. VTE prophylaxis: SCDs only Dispo: change to inpatient due to continue ataxia and need treatment with thiamine and PT.
[2020-05-09] MEDS: Nicotine 14 MG/24 Hr Patch TRDERM SCH (09:39)
[2020-05-09] MEDS: Folic Acid 50 MG/10 ML MDV SUBCUT SCH (09:41)
[2020-05-09] MEDS: Phosphorus #1 250 MG Tab PO SCH ×2 (11:40→17:00)
[2020-05-09] MEDS ORDERED: Haloperidol Lactate 5 MG/ML SDV IM PRN (19:34)
[2020-05-09] MEDS ORDERED: Sodium Chloride 0.9% 1,000 ML IV ONE (20:43)
--- NOTE | 2020-05-09 21:26 | PCM.SN.2 ---
- Free Text/Narrative Note: Patient became agitated this evening and difficult for nurses to redirect. He was transferred to the ICU due to concerns of increasing withdrawal symptoms. He received 5mg of haldol and 2mg of ativan and is now resting comfortable in bed.
--- NOTE | 2020-05-09 23:54 | PN ---
THC Physician - Brief Progress [id number]/26/2020 23:42[facility] Umm Gonzalez, ALYCIA - ABHINAV (ROSI) - MAIKEL STRICKLANDDate of Service 05/09/2020 23:42HPI/Events of Note 65 year old male admitted 2days ago with syncopy and now transferred to ICU with alcohol wi thdrawalon camera [id number],BP116/60,RR20,JCQ172%K3AST/ALT 67/70MRI/MRA brain done on admission no acte changesplan:-CIWA protocol-initiate chlordiazepoxide if able to take pills-watch for withdrawal seizures-correct potassium/magnesium-thiamineInterventions Major-Delirium, psychosis, severe agitati on - evaluation and management, Electrolyte abnormality - evaluation and managementElectronically Sig robbin by: Jinny LEI) on 05/09/2020 23:54
[2020-05-10] MEDS: Phosphorus #1 250 MG Tab PO SCH ×5 (00:51→23:25)
[2020-05-10] MEDS: LORazepam 2 MG/ML SDV IV PRN (02:54)
[2020-05-10] MEDS: Pantoprazole 40 MG in Sodium Chloride 0.9% 10 ML IV SCH ×2 (03:24→16:26)
[2020-05-10 07:07] LABS: BLOOD UREA NITROGEN,BUN 2 mg/dL (7.0-18.0); CARBON DIOXIDE,CO2 26.7 mmol/L (21.0-32.0); CHLORIDE,CL 101 mmol/L (98-107); GLUCOSE RANDOM 99 mg/dL (74-106); POTASSIUM,K 2.5 mmol/L (3.5-5.1); SODIUM,NA 137 mmol/L (136-148)
[2020-05-10] MEDS ORDERED: Potassium Chloride Riders 40 MEQ in Premix Bag 1 BAG IV ONE (07:46)
[2020-05-10] MEDS ORDERED: Magnesium Sulfate (4.06 MEQ/ML) 1 GM/2 ML SDV IM ONE (07:49)
--- NOTE | 2020-05-10 07:50 | PN ---
THC Physician - Brief Progress [id number]/27/2020 07:44[facility] Umm cam ND - ABHINAV (ROSI) - MAIKEL STRICKLANDDate of Service 05/10/2020 07:44HPI/Events of Note K 2.5mag1.7plan:potassium chloride 40 meq over 4 hours IVPB oncemagnesium sulfate 2gm IVPB o nceInterventions Major-Electrolyte abnormality - evaluation and management
[2020-05-10] MEDS: Folic Acid 50 MG/10 ML MDV SUBCUT SCH (08:28)
[2020-05-10] MEDS: Nicotine 14 MG/24 Hr Patch TRDERM SCH (08:29)
[2020-05-10] MEDS ORDERED: Potassium Chloride 40 MEQ in Sodium Chloride 0.9% 500 ML IV ONE (09:00)
[2020-05-10] MEDS: Thiamine 250 MG in Sodium Chloride 0.9% 100 ML IV SCH (09:23)
--- NOTE | 2020-05-10 09:50 | PN ---
THC Physician - Brief Progress [id number]/27/2020 09:25[facility] Umm Gonzalez, ALYCIA - ABHINAV (ROSI) - BAKARIN MAIKEL TREJODate of Service 05/10/2020 09:25HPI/Events of Note eICU Progress [id number] admitted for EtOH withdrawal. History obtained from review of EMR.Came ra exam: Laying in bed. Vitals monitor reviewed.Labs: reviewedRadiology: reviewedeICU Impression and Recommendations:Alcohol WithdrawalContinue CIWA protocol Continued telemetry monitoringThiamine suppl ementation, 100mg dailyReplace electrolytes as necessaryDVT and GI prophylaxis as appropriate.Thank brendon beltrán for allowing us to participate in the care of this patient.The above note transcribed with the ass istance of dictation software. Please excuse any errors.Interventions Major-Delirium, psychosis, [place] agitation - evaluation and management
--- NOTE | 2020-05-10 12:07 | PCM.PN ---
- General Info Date of Service: 05/10/20 - Review of Systems Systems Review Comment:: denies any pain, no shortness of breath. very lethargic - Patient Data Vitals - Most Recent: Last Vital Signs Temp 35.9 C L 05/10/20 08:00 Pulse 136 H 05/09/20 16:00 Resp 22 H 05/10/20 11:00 BP 107/55 L 05/10/20 11:00 Pulse Ox 95 05/10/20 11:00 Orthostatic Blood Pressure [ 130/64 Standing] Orthostatic Blood Pressure [ 126/60 Sitting] Orthostatic Blood Pressure [ 126/62 Supine] Weight - Most Recent: 72.6 kg I&O - Last 24 Hours: Intake & Output 05/09/20 05/10/20 05/10/20 22:59 06:59 14:59 Intake Total 1700 1060 150 Output Total 1565 700 Balance 135 360 150 Lab Results Last 24 Hours: Laboratory Results - last 24 hr 05/08/20 05/10/20 05/10/20 Range/Units 05:35 06:15 06:15 WBC 5.87 (4.0-11.0) K/uL RBC 3.64 L (4.50-5.90) M/uL Hgb 12.9 L (13.0-17.0) g/dL Hct 36.9 L (38.0-50.0) % MCV 101.4 H (80.0-98.0) fL MCH 35.4 H (27.0-32.0) pg MCHC 35.0 (31.0-37.0) g/dL RDW Std Deviation 46.2 (28.0-62.0) fl RDW Coeff of Adenike 13 (11.0-15.0) % Plt Count 93 L (150-400) K/uL MPV 10.00 (7.40-12.00) fL Neut % (Auto) 62.7 (48.0-80.0) % Lymph % (Auto) 24.9 (16.0-40.0) % Orange % (Auto) 11.2 (0.0-15.0) % Eos % (Auto) 1.0 (0.0-7.0) % Baso % (Auto) 0.2 (0.0-1.5) % Neut # (Auto) 3.7 (1.4-5.7) K/uL Lymph # (Auto) 1.5 (0.6-2.4) K/uL Orange # (Auto) 0.7 (0.0-0.8) K/uL Eos # (Auto) 0.1 (0.0-0.7) K/uL Baso # (Auto) 0.0 (0.0-0.1) K/uL Nucleated RBC % 0.0 /100WBC Nucleated RBCs # 0 K/uL Sodium 137 (136-148) mmol/L Potassium 2.5 L (3.5-5.1) mmol/L Chloride 101 (98-107) mmol/L Carbon Dioxide 26.7 (21.0-32.0) mmol/L BUN 2 L (7.0-18.0) mg/dL Creatinine 0.7 L (0.8-1.3) mg/dL Est Cr Clr Drug Dosing 104.89 mL/min Estimated GFR (MDRD) > 60.0 ml/min Glucose 99 (74-106) mg/dL Calcium 7.5 L (8.5-10.1) mg/dL Phosphorus 3.0 (2.6-4.7) mg/dL Magnesium 1.7 L (1.8-2.4) mg/dL Total Bilirubin 1.6 H (0.2-1.0) mg/dL AST 48 H (15-37) IU/L ALT 56 (14-63) IU/L Alkaline Phosphatase 73 (46-116) U/L Total Protein 5.6 L (6.4-8.2) g/dL Albumin 3.0 L (3.4-5.0) g/dL Globulin 2.6 (2.6-4.0) g/dL Albumin/Globulin Ratio 1.2 (0.9-1.6) Hepatitis A IgM Ab Negative (Negative) Hep Bs Antigen Negative (Negative) Hep B Core IgM Ab Negative (Negative) Hepatitis C Antibody <0.1 (0.0-0.9) s/co ratio Med Orders - Current: Current Medications Acetaminophen (Tylenol) 650 mg PO Q6H PRN PRN Reason: Pain Albuterol/Ipratropium (Duoneb 3.0-0.5 Mg/3 Ml) 3 ml NEB Q4HRRT PRN PRN Reason: Shortness Of Breath/wheezing Folic Acid (Folic Acid) 1 mg SUBCUT DAILY [facility] Last Admin: 05/10/20 08:28 Dose: 1 mg Documented by: Haloperidol Lactate (Haldol) 5 mg IM ONETIME PRN PRN Reason: Pain Last Admin: 05/09/20 19:47 Dose: 5 mg Documented by: Pantoprazole Sodium 40 mg/ (Sodium Chloride) 10 mls @ 300 mls/hr IV Q12H [facility] Last Admin: 05/10/20 03:24 Dose: 300 mls/hr Documented by: Thiamine HCl 250 mg/ Sodium (Chloride) 102.5 mls @ 205 mls/hr IV DAILY [facility] Last Admin: 05/10/20 09:23 Dose: 205 mls/hr Documented by: Potassium Chloride 40 meq/ (Sodium Chloride) 520 mls @ 130 mls/hr IV ONETIME ONE Stop: 05/10/20 12:59 Last Admin: 05/10/20 09:22 Dose: 130 mls/hr Documented by: Lorazepam (Ativan) 0 mg IV Q4H PRN; Protocol PRN Reason: CIWAA Last Admin: 05/10/20 02:54 Dose: 2 mg Documented by: Lorazepam (Ativan) 0 mg PO Q4H PRN; Protocol PRN Reason: CIWAA Last Admin: 05/08/20 19:09 Dose: 1 mg Documented by: Nicotine (Habitrol) 14 mg TRDERM DAILY [facility] Last Admin: 05/10/20 08:29 Dose: 14 mg Documented by: Ondansetron HCl (Zofran) 4 mg IVPUSH Q4H PRN PRN Reason: Nausea Sodium Chloride (Saline Flush) 2.5 ml FLUSH ASDIRECTED PRN PRN Reason: Keep Vein Open Last Admin: 05/07/20 14:15 Dose: 2.5 ml Documented by: Sodium Phosphate (Neutra-Phos) 250 mg PO QID [facility] Last Admin: 05/10/20 06:22 Dose: 250 mg Documented by: Discontinued Medications Gadobenate Dimeglumine (Multihance) 20 ml IVPUSH ONETIME STA Stop: 05/08/20 17:02 Last Admin: 05/08/20 17:03 Dose: 13 ml Documented by: Sodium Chloride (Normal Saline) 1,000 mls @ 999 mls/hr IV STAT ONE Stop: 05/07/20 14:46 Last Admin: 05/07/20 14:06 Dose: 999 mls/hr Documented by: Magnesium Sulfate 2 gm/ Premix 50 mls @ 50 mls/hr IV ONETIME ONE Stop: 05/07/20 16:02 Last Admin: 05/07/20 15:16 Dose: 50 mls/hr Documented by: Multivitamins/Minerals 10 ml/Thiamine HCl 100 mg/ Folic Acid 1 mg/ Sodium Chloride 1,011.2 mls @ 150 mls/hr IV ONETIME ONE Stop: 05/07/20 21:55 Last Admin: 05/07/20 15:31 Dose: 150 mls/hr Documented by: Sodium Chloride (Normal Saline) 1,000 mls @ 100 mls/hr IV Q10H [facility] Last Admin: 05/07/20 23:18 Dose: Not Given Documented by: Magnesium Sulfate 2 gm/ Premix 50 mls @ 50 mls/hr IV ONETIME ONE Stop: 05/07/20 17:29 Last Admin: 05/07/20 18:24 Dose: 50 mls/hr Documented by: Thiamine HCl 500 mg/ Sodium (Chloride) 255 mls @ 510 mls/hr IV TID [facility] Last Admin: 05/09/20 05:22 Dose: 510 mls/hr Documented by: Sodium Chloride (Normal Saline) 1,000 mls @ 100 mls/hr IV Q10H [facility] Sodium Chloride (Normal Saline) 1,000 mls @ 100 mls/hr IV Q10H [facility] Last Admin: 05/09/20 06:46 Dose: Not Given Documented by: Magnesium Sulfate 4 gm/ Premix 100 mls @ 50 mls/hr IV ONETIME ONE Stop: 05/08/20 09:55 Last Admin: 05/08/20 09:38 Dose: 50 mls/hr Documented by: Potassium Chloride/Sodium Chloride (Normal Saline With 40 Meq Kcl) 1,000 mls @ 125 mls/hr IV ONETIME ONE Stop: 05/09/20 16:01 Last Admin: 05/09/20 11:34 Dose: Not Given Documented by: Magnesium Sulfate 4 gm/ Premix 100 mls @ 50 mls/hr IV ONETIME ONE Stop: 05/09/20 10:01 Last Admin: 05/09/20 08:52 Dose: 50 mls/hr Documented by: Thiamine HCl 500 mg/ Sodium (Chloride) 255 mls @ 510 mls/hr IV TID [facility] Stop: 05/09/20 22:29 Last Admin: 05/09/20 21:13 Dose: 510 mls/hr Documented by: Potassium Chloride/Sodium Chloride (Normal Saline With 40 Meq Kcl) 1,000 mls @ 125 mls/hr IV ONETIME ONE Stop: 05/09/20 19:29 Last Admin: 05/09/20 11:43 Dose: 125 mls/hr Documented by: Sodium Chloride (Normal Saline) 1,000 mls @ 75 mls/hr IV STAT ONE Stop: 05/10/20 10:02 Last Infusion: 05/10/20 09:27 Dose: 0 mls/hr Documented by: Potassium Chloride 40 meq/ (Premix) 100 mls @ 25 mls/hr IV ONETIME ONE Stop: 05/10/20 11:45 Last Admin: 05/10/20 09:23 Dose: Not Given Documented by: Magnesium Sulfate 1 gm/ Sodium (Chloride) 52 mls @ 104 mls/hr IV ONETIME ONE Stop: 05/10/20 08:59 Last Admin: 05/10/20 08:53 Dose: 104 mls/hr Documented by: Lorazepam (Ativan) 1 mg IVPUSH ONETIME ONE Stop: 05/07/20 14:44 Last Admin: 05/07/20 20:56 Dose: Not Given Documented by: Ondansetron HCl (Zofran) 4 mg IVPUSH ONETIME ONE Stop: 05/07/20 13:47 Last Admin: 05/07/20 14:06 Dose: 4 mg Documented by: Sodium Chloride (Saline Flush) 10 ml FLUSH ASDIRECTED PRN PRN Reason: Keep Vein Open Last Admin: 05/07/20 14:15 Dose: 10 ml Documented by: - Exam General: Lethargic Neck: Supple Lungs: Clear to Auscultation, Normal Respiratory Effort Cardiovascular: Regular Rate, Regular Rhythm GI/Abdominal Exam: Soft, Non-Tender Extremities: Non-Tender, No Pedal Edema Skin: Warm, Dry, Intact Neurological: No New Focal Deficit Sepsis Event Note - Evaluation Sepsis Screening Result: No Definite Risk - Focused Exam Vital Signs: Vital Signs Temp Resp BP Pulse Ox 05/10/20 11:00 22 H 107/55 L 95 05/10/20 10:00 21 H 98/56 L 94 L 05/10/20 09:00 23 H 101/59 L 95 05/10/20 08:00 35.9 C L 19 118/65 97 05/10/20 07:00 20 123/71 97 05/10/20 06:00 20 130/67 94 L 05/10/20 05:00 18 133/70 94 L 05/10/20 04:00 36.4 C 21 H 118/69 94 L 05/10/20 03:00 19 155/109 H 96 05/10/20 02:00 21 H 119/61 96 05/10/20 01:00 21 H 116/62 96 Date Exam was Performed: 05/10/20 Time Exam was Performed: 12:04 - Problem List Review Problem List Initiated/Reviewed/Updated: Yes - Plan Plan:: This 65 year old male admitted with alcohol withdrawal, suspected wernicke's, syncope and electrolyte abnormalities Alcohol withdrawal, suspected Wernicke's - CIWAA assessment with Ativan PRN, transferred to ICU last night due to elevated CIWAA scores, removing soft restraints - Thiamine 250 to start tomorrow, daily - Folic acid daily Hypokalemia/hypophosphatemia/hypomagnesia: replacing.
[2020-05-10] MEDS: Acetaminophen 325 MG Tab PO PRN (12:47)
[2020-05-10] MEDS: Diazepam 5 MG Tab PO SCH (13:46)
[2020-05-10] MEDS: Sodium Chloride 0.9% 2.5 ML Syringe FLUSH PRN (16:27)
[2020-05-10 16:33] LABS: BLOOD UREA NITROGEN,BUN 3 mg/dL (7.0-18.0); CARBON DIOXIDE,CO2 26.3 mmol/L (21.0-32.0); CHLORIDE,CL 101 mmol/L (98-107); GLUCOSE RANDOM 139 mg/dL (74-106); POTASSIUM,K 3.2 mmol/L (3.5-5.1); SODIUM,NA 136 mmol/L (136-148)
--- NOTE | 2020-05-10 16:46 | PN ---
THC Physician - Brief Progress [id number]/27/2020 16:45[facility] Umm cam [place] - ABHINAV ([facility]) - MAIKEL STRICKLANDDate of Service 05/10/2020 16:45HPI/Events of Note eICU Update NoteNotified K 3.2 following replacement. 80mEq KCl ordered with repeat BMP.Inte rventions Intermediate-Electrolyte abnormality - evaluation and management
[2020-05-10] MEDS ORDERED: Potassium Chloride 40 MEQ in Sodium Chloride 0.9% 500 ML IV SCH (17:00)
[2020-05-10] MEDS: Potassium Chloride 40 MEQ in Sodium Chloride 0.9% 500 ML IV SCH ×2 (18:32→22:36)
[2020-05-10] MEDS: LORazepam 1 MG Tab PO PRN (23:26)
[2020-05-11 00:36] LABS: BLOOD UREA NITROGEN,BUN 5 mg/dL (7.0-18.0); CARBON DIOXIDE,CO2 27.3 mmol/L (21.0-32.0); CHLORIDE,CL 105 mmol/L (98-107); GLUCOSE RANDOM 113 mg/dL (74-106); POTASSIUM,K 3.8 mmol/L (3.5-5.1); SODIUM,NA 140 mmol/L (136-148)
[2020-05-11] MEDS: Pantoprazole 40 MG in Sodium Chloride 0.9% 10 ML IV SCH ×2 (04:39→16:17)
[2020-05-11] MEDS: Phosphorus #1 250 MG Tab PO SCH ×3 (06:31→18:04)
[2020-05-11 07:24] LABS: BLOOD UREA NITROGEN,BUN 4 mg/dL (7.0-18.0); CARBON DIOXIDE,CO2 25.6 mmol/L (21.0-32.0); CHLORIDE,CL 105 mmol/L (98-107); GLUCOSE RANDOM 101 mg/dL (74-106); POTASSIUM,K 3.6 mmol/L (3.5-5.1); SODIUM,NA 141 mmol/L (136-148)
[2020-05-11] MEDS: Folic Acid 50 MG/10 ML MDV SUBCUT SCH (08:48)
[2020-05-11] MEDS: Diazepam 5 MG Tab PO SCH (08:49)
[2020-05-11] MEDS: Nicotine 14 MG/24 Hr Patch TRDERM SCH (08:49)
[2020-05-11] MEDS ORDERED: Potassium Chloride Riders 20 MEQ in Premix Bag 1 BAG IV ONE (08:59)
[2020-05-11] MEDS ORDERED: Magnesium Sulfate (4.06 MEQ/ML) 5 GM/10 ML SDV IV STA (09:04)
[2020-05-11] MEDS ORDERED: Magnesium Sulfate/Water 4 GM in Premix Bag 1 BAG IV ONE (09:15)
--- NOTE | 2020-05-11 09:15 | PN ---
THC Physician - Brief Progress [id number]/28/2020 09:06[facility] Umm Gonzalez, ALYCIA - ABHINAV (ROSI) - MAIKEL STRICKLANDDate of Service 05/11/2020 09:06HPI/Events of Note eICU progress note:65-year-old male who presented to hospital with EtOH withdrawal. Patient had no acute events overnight and did trigger his CIWA protocol x1 receiving Ativan at that time.Pat ient sitting up in chair next to bed currently eating breakfast and does not appear to be in any acut e distress or agitation.Vital signs reviewedLabs/EMR reviewedEtoh abuse-Agree with CIWA protocol with PRN ativan -If patient has high requirement of Benzo's can consider adding on Precedex to help decre ase requirement.-Agree with Thiamine and folate-Recommend aggressive replacement of Mg and K to preve nt any arrhythmias (replaced this AM)-Agree with IVFxsInterventions Major-Other: Etoh abuseElectronic ally Signed by: CITLALLI SAUER) on 05/11/2020 09:14
[2020-05-11] MEDS ORDERED: Potassium Chloride 40 MEQ in Sodium Chloride 0.9% 500 ML IV ONE (09:30)
[2020-05-11] MEDS: Thiamine 250 MG in Sodium Chloride 0.9% 100 ML IV SCH (09:57)
--- NOTE | 2020-05-11 12:48 | PCM.PN ---
- General Info Date of Service: 05/11/20 - Patient Data Vitals - Most Recent: Last Vital Signs Temp 36.4 C 05/11/20 12:00 Pulse 136 H 05/09/20 16:00 Resp 13 05/11/20 12:00 BP 103/65 05/11/20 12:00 Pulse Ox 97 05/11/20 12:00 Orthostatic Blood Pressure [ 102/66 Standing] Orthostatic Blood Pressure [ 103/65 Sitting] Orthostatic Blood Pressure [ 123/63 Supine] Weight - Most Recent: 75.1 kg I&O - Last 24 Hours: Intake & Output 05/10/20 05/11/20 05/11/20 22:59 06:59 14:59 Intake Total 1050 1810 420 Output Total 560 150 575 Balance 490 1660 -155 Lab Results Last 24 Hours: Laboratory Results - last 24 hr 05/10/20 05/11/20 05/11/20 Range/Units 16:07 00:10 06:25 WBC 5.47 (4.0-11.0) K/uL RBC 3.62 L (4.50-5.90) M/uL Hgb 13.1 (13.0-17.0) g/dL Hct 37.7 L (38.0-50.0) % MCV 104.1 H (80.0-98.0) fL MCH 36.2 H (27.0-32.0) pg MCHC 34.7 (31.0-37.0) g/dL RDW Std Deviation 48.7 (28.0-62.0) fl RDW Coeff of [place] 13 (11.0-15.0) % Plt Count 110 L (150-400) K/uL MPV 9.90 (7.40-12.00) fL Neut % (Auto) 48.3 (48.0-80.0) % Lymph % (Auto) 40.2 H (16.0-40.0) % [place] % (Auto) 9.1 (0.0-15.0) % Eos % (Auto) 2.0 (0.0-7.0) % Baso % (Auto) 0.4 (0.0-1.5) % Neut # (Auto) 2.6 (1.4-5.7) K/uL Lymph # (Auto) 2.2 (0.6-2.4) K/uL [place] # (Auto) 0.5 (0.0-0.8) K/uL Eos # (Auto) 0.1 (0.0-0.7) K/uL Baso # (Auto) 0.0 (0.0-0.1) K/uL Nucleated RBC % 0.0 /100WBC Nucleated RBCs # 0 K/uL Sodium 136 140 (136-148) mmol/L Potassium 3.2 L 3.8 (3.5-5.1) mmol/L Chloride 101 105 (98-107) mmol/L Carbon Dioxide 26.3 27.3 (21.0-32.0) mmol/L BUN 3 L 5 L (7.0-18.0) mg/dL Creatinine 0.7 L 0.7 L (0.8-1.3) mg/dL Est Cr Clr Drug Dosing 104.89 104.89 mL/min Estimated GFR (MDRD) > 60.0 > 60.0 ml/min Glucose 139 H 113 H (74-106) mg/dL Calcium 7.7 L 7.9 L (8.5-10.1) mg/dL Phosphorus (2.6-4.7) mg/dL Magnesium (1.8-2.4) mg/dL Total Bilirubin (0.2-1.0) mg/dL AST (15-37) IU/L ALT (14-63) IU/L Alkaline Phosphatase (46-116) U/L Total Protein (6.4-8.2) g/dL Albumin (3.4-5.0) g/dL Globulin (2.6-4.0) g/dL Albumin/Globulin Ratio (0.9-1.6) 05/11/20 Range/Units 06:25 WBC (4.0-11.0) K/uL RBC (4.50-5.90) M/uL Hgb (13.0-17.0) g/dL Hct (38.0-50.0) % MCV (80.0-98.0) fL MCH (27.0-32.0) pg MCHC (31.0-37.0) g/dL RDW Std Deviation (28.0-62.0) fl RDW Coeff of [place] (11.0-15.0) % Plt Count (150-400) K/uL MPV (7.40-12.00) fL Neut % (Auto) (48.0-80.0) % Lymph % (Auto) (16.0-40.0) % [place] % (Auto) (0.0-15.0) % Eos % (Auto) (0.0-7.0) % Baso % (Auto) (0.0-1.5) % Neut # (Auto) (1.4-5.7) K/uL Lymph # (Auto) (0.6-2.4) K/uL [place] # (Auto) (0.0-0.8) K/uL Eos # (Auto) (0.0-0.7) K/uL Baso # (Auto) (0.0-0.1) K/uL Nucleated RBC % /100WBC Nucleated RBCs # K/uL Sodium 141 (136-148) mmol/L Potassium 3.6 (3.5-5.1) mmol/L Chloride 105 (98-107) mmol/L Carbon Dioxide 25.6 (21.0-32.0) mmol/L BUN 4 L (7.0-18.0) mg/dL Creatinine 0.6 L (0.8-1.3) mg/dL Est Cr Clr Drug Dosing 122.37 mL/min Estimated GFR (MDRD) > 60.0 ml/min Glucose 101 (74-106) mg/dL Calcium 8.1 L (8.5-10.1) mg/dL Phosphorus 4.4 (2.6-4.7) mg/dL Magnesium 1.5 L (1.8-2.4) mg/dL Total Bilirubin 1.5 H (0.2-1.0) mg/dL AST 56 H (15-37) IU/L ALT 63 (14-63) IU/L Alkaline Phosphatase 72 (46-116) U/L Total Protein 5.6 L (6.4-8.2) g/dL Albumin 2.9 L (3.4-5.0) g/dL Globulin 2.7 (2.6-4.0) g/dL Albumin/Globulin Ratio 1.1 (0.9-1.6) Med Orders - Current: Current Medications Acetaminophen (Tylenol) 650 mg PO Q6H PRN PRN Reason: Pain Last Admin: 05/10/20 12:47 Dose: 650 mg Documented by: Albuterol/Ipratropium (Duoneb 3.0-0.5 Mg/3 Ml) 3 ml NEB Q4HRRT PRN PRN Reason: Shortness Of Breath/wheezing Folic Acid (Folic Acid) 1 mg SUBCUT DAILY [facility] Last Admin: 05/11/20 08:48 Dose: 1 mg Documented by: Haloperidol Lactate (Haldol) 5 mg IM ONETIME PRN PRN Reason: Pain Last Admin: 05/09/20 19:47 Dose: 5 mg Documented by: Pantoprazole Sodium 40 mg/ (Sodium Chloride) 10 mls @ 300 mls/hr IV Q12H [facility] Last Admin: 05/11/20 04:39 Dose: 300 mls/hr Documented by: Thiamine HCl 250 mg/ Sodium (Chloride) 102.5 mls @ 205 mls/hr IV DAILY [facility] Last Admin: 05/11/20 09:57 Dose: 205 mls/hr Documented by: Lorazepam (Ativan) 0 mg IV Q4H PRN; Protocol PRN Reason: CIWAA Last Admin: 05/10/20 02:54 Dose: 2 mg Documented by: Lorazepam (Ativan) 0 mg PO Q4H PRN; Protocol PRN Reason: CIWAA Last Admin: 05/10/20 23:26 Dose: 1 mg Documented by: Nicotine (Habitrol) 14 mg TRDERM DAILY [facility] Last Admin: 05/11/20 08:49 Dose: 14 mg Documented by: Ondansetron HCl (Zofran) 4 mg IVPUSH Q4H PRN PRN Reason: Nausea Sodium Chloride (Saline Flush) 2.5 ml FLUSH ASDIRECTED PRN PRN Reason: Keep Vein Open Last Admin: 05/10/20 16:27 Dose: 2.5 ml Documented by: Sodium Phosphate (Neutra-Phos) 250 mg PO QID [facility] Last Admin: 05/11/20 06:31 Dose: 250 mg Documented by: Discontinued Medications Diazepam (Valium.) 5 mg PO DAILY [facility] Last Admin: 05/11/20 08:49 Dose: 5 mg Documented by: Gadobenate Dimeglumine (Multihance) 20 ml IVPUSH ONETIME STA Stop: 05/08/20 17:02 Last Admin: 05/08/20 17:03 Dose: 13 ml Documented by: Sodium Chloride (Normal Saline) 1,000 mls @ 999 mls/hr IV STAT ONE Stop: 05/07/20 14:46 Last Admin: 05/07/20 14:06 Dose: 999 mls/hr Documented by: Magnesium Sulfate 2 gm/ Premix 50 mls @ 50 mls/hr IV ONETIME ONE Stop: 05/07/20 16:02 Last Admin: 05/07/20 15:16 Dose: 50 mls/hr Documented by: Multivitamins/Minerals 10 ml/Thiamine HCl 100 mg/ Folic Acid 1 mg/ Sodium Chloride 1,011.2 mls @ 150 mls/hr IV ONETIME ONE Stop: 05/07/20 21:55 Last Admin: 05/07/20 15:31 Dose: 150 mls/hr Documented by: Sodium Chloride (Normal Saline) 1,000 mls @ 100 mls/hr IV Q10H [facility] Last Admin: 05/07/20 23:18 Dose: Not Given Documented by: Magnesium Sulfate 2 gm/ Premix 50 mls @ 50 mls/hr IV ONETIME ONE Stop: 05/07/20 17:29 Last Admin: 05/07/20 18:24 Dose: 50 mls/hr Documented by: Thiamine HCl 500 mg/ Sodium (Chloride) 255 mls @ 510 mls/hr IV TID [facility] Last Admin: 05/09/20 05:22 Dose: 510 mls/hr Documented by: Sodium Chloride (Normal Saline) 1,000 mls @ 100 mls/hr IV Q10H [facility] Sodium Chloride (Normal Saline) 1,000 mls @ 100 mls/hr IV Q10H [facility] Last Admin: 05/09/20 06:46 Dose: Not Given Documented by: Magnesium Sulfate 4 gm/ Premix 100 mls @ 50 mls/hr IV ONETIME ONE Stop: 05/08/20 09:55 Last Admin: 05/08/20 09:38 Dose: 50 mls/hr Documented by: Potassium Chloride/Sodium Chloride (Normal Saline With 40 Meq Kcl) 1,000 mls @ 125 mls/hr IV ONETIME ONE Stop: 05/09/20 16:01 Last Admin: 05/09/20 11:34 Dose: Not Given Documented by: Magnesium Sulfate 4 gm/ Premix 100 mls @ 50 mls/hr IV ONETIME ONE Stop: 05/09/20 10:01 Last Admin: 05/09/20 08:52 Dose: 50 mls/hr Documented by: Thiamine HCl 500 mg/ Sodium (Chloride) 255 mls @ 510 mls/hr IV TID [facility] Stop: 05/09/20 22:29 Last Admin: 05/09/20 21:13 Dose: 510 mls/hr Documented by: Potassium Chloride/Sodium Chloride (Normal Saline With 40 Meq Kcl) 1,000 mls @ 125 mls/hr IV ONETIME ONE Stop: 05/09/20 19:29 Last Admin: 05/09/20 11:43 Dose: 125 mls/hr Documented by: Sodium Chloride (Normal Saline) 1,000 mls @ 75 mls/hr IV STAT ONE Stop: 05/10/20 10:02 Last Infusion: 05/10/20 09:27 Dose: 0 mls/hr Documented by: Potassium Chloride 40 meq/ (Premix) 100 mls @ 25 mls/hr IV ONETIME ONE Stop: 05/10/20 11:45 Last Admin: 05/10/20 09:23 Dose: Not Given Documented by: Magnesium Sulfate 1 gm/ Sodium (Chloride) 52 mls @ 104 mls/hr IV ONETIME ONE Stop: 05/10/20 08:59 Last Admin: 05/10/20 08:53 Dose: 104 mls/hr Documented by: Potassium Chloride 40 meq/ (Sodium Chloride) 520 mls @ 130 mls/hr IV ONETIME ONE Stop: 05/10/20 12:59 Last Admin: 05/10/20 09:22 Dose: 130 mls/hr Documented by: Potassium Chloride 40 meq/ (Sodium Chloride) 520 mls @ 130 mls/hr IV Q4H [facility] Stop: 05/11/20 02:29 Last Admin: 05/10/20 22:36 Dose: 130 mls/hr Documented by: Potassium Chloride 20 meq/ (Premix) 50 mls @ 25 mls/hr IV ONETIME ONE Stop: 05/11/20 10:58 Last Admin: 05/11/20 09:39 Dose: Not Given Documented by: Magnesium Sulfate 4 gm/ Premix 100 mls @ 33.333 mls/hr IV ONETIME ONE Stop: 05/11/20 12:14 Last Admin: 05/11/20 09:59 Dose: 33.333 mls/hr Documented by: Potassium Chloride 20 meq/ (Sodium Chloride) 260 mls @ 130 mls/hr IV ONETIME ONE Stop: 05/11/20 11:44 Last Admin: 05/11/20 09:57 Dose: 130 mls/hr Documented by: Lorazepam (Ativan) 1 mg IVPUSH ONETIME ONE Stop: 05/07/20 14:44 Last Admin: 05/07/20 20:56 Dose: Not Given Documented by: Magnesium Sulfate (Magnesium Sulfate 50%) 4 gm IV NOW STA Stop: 05/11/20 09:05 Ondansetron HCl (Zofran) 4 mg IVPUSH ONETIME ONE Stop: 05/07/20 13:47 Last Admin: 05/07/20 14:06 Dose: 4 mg Documented by: Sodium Chloride (Saline Flush) 10 ml FLUSH ASDIRECTED PRN PRN Reason: Keep Vein Open Last Admin: 05/07/20 14:15 Dose: 10 ml Documented by: - Exam General: Alert, Cooperative Neck: Supple Lungs: Clear to Auscultation, Normal Respiratory Effort Cardiovascular: Regular Rate, Regular Rhythm GI/Abdominal Exam: Normal Bowel Sounds, Soft, Non-Tender Extremities: Non-Tender, No Pedal Edema Skin: Warm, Dry, Intact Neurological: No New Focal Deficit Sepsis Event Note - Evaluation Sepsis Screening Result: No Definite Risk - Focused Exam Vital Signs: Vital Signs Temp Resp BP Pulse Ox 05/11/20 12:00 36.4 C 13 103/65 97 05/11/20 11:00 17 107/71 05/11/20 10:00 15 111/65 05/11/20 09:00 19 95 05/11/20 08:00 36.9 C 15 105/60 97 05/11/20 07:00 21 H 109/66 92 L 05/11/20 06:00 23 H 103/51 L 95 05/11/20 05:00 20 102/49 L 96 05/11/20 04:00 36.8 C 19 101/49 L 95 05/11/20 03:00 23 H 95/45 L 95 05/11/20 02:00 18 107/53 L 95 05/11/20 01:00 14 118/68 95 Date Exam was Performed: 05/11/20 Time Exam was Performed: 12:46 - Problem List Review Problem List Initiated/Reviewed/Updated: Yes - My Orders Last 24 Hours: My Active Orders 05/12/20 05:11 BASIC METABOLIC PANEL,BMP [CHEM] AM CBC WITH AUTO DIFF [HEME] AM MAGNESIUM [CHEM] AM PHOSPHORUS [CHEM] AM - Plan Plan:: This 65 year old male admitted with alcohol withdrawal, suspected wernicke's, syncope and electrolyte abnormalities Alcohol withdrawal, suspected Wernicke's - CIWAA assessment with Ativan PRN, Received Valium yesterday and today. Will transfer to regular medical floor. - Thiamine 250, daily - Folic acid daily Hypokalemia/hypophosphatemia/hypomagnesia: replacing.
[2020-05-11] MEDS: Acetaminophen 325 MG Tab PO PRN ×2 (13:18→22:12)
[2020-05-12] MEDS: Phosphorus #1 250 MG Tab PO SCH ×2 (00:42→06:21)
[2020-05-12] MEDS: Pantoprazole 40 MG in Sodium Chloride 0.9% 10 ML IV SCH ×3 (05:05→16:17)
[2020-05-12] MEDS: Acetaminophen 325 MG Tab PO PRN ×2 (06:39→15:56)
[2020-05-12 06:45] LABS: BLOOD UREA NITROGEN,BUN 5 mg/dL (7.0-18.0); CARBON DIOXIDE,CO2 26.8 mmol/L (21.0-32.0); CHLORIDE,CL 103 mmol/L (98-107); GLUCOSE RANDOM 100 mg/dL (74-106); POTASSIUM,K 3.3 mmol/L (3.5-5.1); SODIUM,NA 140 mmol/L (136-148)
[2020-05-12] MEDS: Folic Acid 50 MG/10 ML MDV SUBCUT SCH (08:09)
[2020-05-12] MEDS: Nicotine 14 MG/24 Hr Patch TRDERM SCH (08:09)
[2020-05-12] MEDS ORDERED: Potassium Chloride 20 MEQ Tab.ER PO ONE (08:37)
[2020-05-12] MEDS ORDERED: Magnesium Sulfate/Water 4 GM in Premix Bag 1 BAG IV ONE (08:37)
[2020-05-12] MEDS: Thiamine 250 MG in Sodium Chloride 0.9% 100 ML IV SCH (09:06)
--- NOTE | 2020-05-12 12:31 | PCM.DCSUM1 ---
Discharge Summary - Hospital Course Brief History: This 65 year old male with little past medical history presented to the ED today with complaints of shaking, sweating, and daughter reports passing out. He reports he was feeling not well the last few days, having trouble walking because he is so unsteady and shaky. Denies blurred vision or double vision. He denies headache or fevers. No chest pain or SOB. He reports he drinks at least a 6 pack a night, maybe more depending on who is with him. He says the last drink he had was last night. He isn't sure if shaking gets worse when he stops drinking or when he is drinking. He denies history of seizures. He reports he was in [place] last week or two and had low potassium and also noted bloody stools. He reports he was given a pill to take before he eats. He reports the last bloody stool was 2 weeks ago. Denies black stool now. No abdominal pain. His daughter reported syncope, which he states he doesn't remember that, that was happening. He also reports he recently had a carotid test, and it stated he had plaque build up, but he is unsure how much. He reports he smokes 1/2 ppd since he was 20 years old. He denies recreational drug use. In the ED no leukocytosis noted, hgb 13.7 (NDHIN baseline around 14.7) Platelets 100,000, last drawn 140,000 04/18/2020. K+ 3.8, Magnesium 1.2 Bilirubin 1.3, AST 131, ALT 99, alk phos 84, which are near baseline. Troponin negative. Lipase 100. ETOH 94, UA and Utox negative. CXr negative for acute cardiopulmonary process, Head CT negative as well, mild atrophy noted. With acitivity tachycardia is noted, 140s and he gets lightheaded with activity and feels very shaky. He was given magnesium 2 gm IV, MVI IV, Zofran and 1 L NS in the ED. he will be admitted with alcohol withdrawal, hypomagnesemia and syncope. [facility] records reviewed, only labwork available as mentioned above. Diagnosis: Stroke: No - Discharge Data Discharge Date: 05/12/20 Discharge Disposition: Home, W Home Health Agency Condition: Good - Referral to Home Health Date of Face to Face Encounter: 05/12/20 Reason for Homebound Status: Bonilla is in need of assistance with ambulation and unable to drive currently. He is in need of assistance of caregiver to leave the home Primary Care Physician: PCP Not In Area Skilled Need: Bonilla is in need of PT to evaluate walking as well as safety within in the home. Bonilla is in need of nursing home care to help monitor signs of ataxia, and unsteady gait while at home. - Discharge Diagnosis/Problem(s) (1) History of GI bleed SNOMED Code(s): 134515960 ICD Code: Z87.19 - PERSONAL HISTORY OF OTHER DISEASES OF THE DIGESTIVE SYSTEM Status: Acute Current Visit: Yes (2) Alcohol abuse SNOMED Code(s): 30524560 ICD Code: F10.10 - ALCOHOL ABUSE, UNCOMPLICATED Status: Acute Current Visit: Yes (3) Wernicke's syndrome SNOMED Code(s): 90385275 ICD Code: E51.2 - WERNICKE'S ENCEPHALOPATHY Status: Acute Current Visit: Yes (4) Transaminitis SNOMED Code(s): 996797095, 553826120 ICD Code: R74.0 - NONSPEC ELEV OF LEVELS OF TRANSAMNS & LACTIC ACID DEHYDRGNSE Status: Acute Current Visit: Yes (5) Hyperbilirubinemia SNOMED Code(s): 52912771 ICD Code: E80.6 - OTHER DISORDERS OF BILIRUBIN METABOLISM Status: Acute Current Visit: Yes (6) Thrombocytopenia SNOMED Code(s): 358299988 ICD Code: D69.6 - THROMBOCYTOPENIA, UNSPECIFIED Status: Acute Current Visit: Yes (7) Alcohol withdrawal SNOMED Code(s): 071607509 ICD Code: F10.239 - ALCOHOL DEPENDENCE WITH WITHDRAWAL, UNSPECIFIED Status: Acute Current Visit: Yes Qualifiers: Complication of substance-induced condition: uncomplicated Qualified Code(s): F10.230 - Alcohol dependence with withdrawal, uncomplicated (8) Hypomagnesemia SNOMED Code(s): 938565035 ICD Code: E83.42 - HYPOMAGNESEMIA Status: Acute Current Visit: Yes (9) Syncope SNOMED Code(s): 359885876 ICD Code: R55 - SYNCOPE AND COLLAPSE Status: Acute Current Visit: Yes Qualifiers: Syncope type: unspecified Qualified Code(s): R55 - Syncope and collapse - Patient Summary/Data Consults: Consultations 05/07/20 16:50 Consult to Physical Therapy [PT Evaluation and Treatment] [CONS] Routine Hospital Course: Admitting Diagnoses: Alcohol withdrawal Wernicke's Hypomagnesemia Discharge Diagnoses: Alcohol withdrawal Wernicke's Hypomagnesemia Bonilla was admitted and treated for acute alcohol withdrawal syndrome as well as Wernickes due to ataxia and nystagmus. He was treated with high dose Thiamine 500 mg TID x 2 days then 250 IV daily. He was treated with Ativan for CIWAA scores. He was worked up with MRI for syncope, which returned negative for CVA. He was agitated quite severely and transferred to ICU for a couple nights and improved with aggressive Benzodiazepine treatment for withdrawal. Today he is much improved. He has been withon Ativan for 24 hours with CIWAA scores 1-4. Ataxia is much improved. He has 2 more days left for IV thiamine dosing, which he will complete as outpatient, then take 100 mg po daily as well as folic acid. Daughter, iain was updated and is in agreement of this. He will be staying with her indefinitely in [place]. He will be sent home today, with Home Health referral. he has been heavily counseled on sobriety. He and daughter appear motivated to keeping him sober. He is to return to ED or clinic if concerns should arise. - Patient Instructions Diet: Regular Diet as Tolerated Activity: As Tolerated Driving: Do Not Drive Showering/Bathing: May Shower Notify Provider of: Fever, Increased Pain, Swelling and Redness, Drainage, Nausea and/or Vomiting - Discharge Plan *PRESCRIPTION DRUG MONITORING PROGRAM REVIEWED*: Not Applicable *COPY OF PRESCRIPTION DRUG MONITORING REPORT IN PATIENT POOJA: Not Applicable Prescriptions/Med Rec: Folic Acid 1 mg PO BEDTIME #60 tab Thiamine [Vitamin B-1] 100 mg PO BEDTIME #60 tab Thiamine [Vitamin B-1] 250 mg IV DAILY #2 mdv Home Medications: Home Meds Folic Acid 1 mg PO BEDTIME #60 tab 05/12/20 [Rx] Thiamine [Vitamin B-1] 100 mg PO BEDTIME #60 tab 05/12/20 [Rx] Thiamine [Vitamin B-1] 250 mg IV DAILY #2 mdv 05/12/20 [Rx] Oxygen Therapy Mode: Room Air Referrals: Ellen Medellin NP [Ordering Only Provider] - 05/22/20 9:00 am Taylor Kraus MD [Resident] - 05/19/20 2:30 pm - Discharge Summary/Plan Comment DC Time >30 min.: No - Patient Data Vitals - Most Recent: Last Vital Signs Temp 97.2 F 05/12/20 12:00 Pulse 83 05/12/20 12:00 Resp 18 05/12/20 12:00 BP 123/61 05/12/20 12:00 Pulse Ox 97 05/12/20 12:00 Orthostatic Blood Pressure [ 144/76 Standing] Orthostatic Blood Pressure [ 138/99 Sitting] Orthostatic Blood Pressure [ 129/68 Supine] Weight - Most Recent: 73 kg I&O - Last 24 hours: Intake & Output 05/11/20 05/12/20 05/12/20 22:59 06:59 14:59 Intake Total 910 760 Output Total 675 770 Balance 235 -10 Lab Results - Last 24 hrs: Laboratory Results - last 24 hr 05/12/20 05/12/20 Range/Units 06:00 06:00 WBC 5.15 (4.0-11.0) K/uL RBC 3.57 L (4.50-5.90) M/uL Hgb 12.6 L (13.0-17.0) g/dL Hct 36.7 L (38.0-50.0) % MCV 102.8 H (80.0-98.0) fL MCH 35.3 H (27.0-32.0) pg MCHC 34.3 (31.0-37.0) g/dL RDW Std Deviation 48.1 (28.0-62.0) fl RDW Coeff of [place] 13 (11.0-15.0) % Plt Count 128 L (150-400) K/uL MPV 9.30 (7.40-12.00) fL Neut % (Auto) 49.7 (48.0-80.0) % Lymph % (Auto) 33.2 (16.0-40.0) % [place] % (Auto) 14.4 (0.0-15.0) % Eos % (Auto) 2.3 (0.0-7.0) % Baso % (Auto) 0.4 (0.0-1.5) % Neut # (Auto) 2.6 (1.4-5.7) K/uL Lymph # (Auto) 1.7 (0.6-2.4) K/uL [place] # (Auto) 0.7 (0.0-0.8) K/uL Eos # (Auto) 0.1 (0.0-0.7) K/uL Baso # (Auto) 0.0 (0.0-0.1) K/uL Nucleated RBC % 0.0 /100WBC Nucleated RBCs # 0 K/uL Sodium 140 (136-148) mmol/L Potassium 3.3 L (3.5-5.1) mmol/L Chloride 103 (98-107) mmol/L Carbon Dioxide 26.8 (21.0-32.0) mmol/L BUN 5 L (7.0-18.0) mg/dL Creatinine 0.7 L (0.8-1.3) mg/dL Est Cr Clr Drug Dosing 104.89 mL/min Estimated GFR (MDRD) > 60.0 ml/min Glucose 100 (74-106) mg/dL Calcium 8.2 L (8.5-10.1) mg/dL Phosphorus 4.9 H (2.6-4.7) mg/dL Magnesium 1.6 L (1.8-2.4) mg/dL Med Orders - Current: Current Medications Acetaminophen (Tylenol) 650 mg PO Q6H PRN PRN Reason: Pain Last Admin: 05/12/20 06:39 Dose: 650 mg Documented by: Albuterol/Ipratropium (Duoneb 3.0-0.5 Mg/3 Ml) 3 ml NEB Q4HRRT PRN PRN Reason: Shortness Of Breath/wheezing Folic Acid (Folic Acid) 1 mg SUBCUT DAILY [facility] Last Admin: 05/12/20 08:09 Dose: 1 mg Documented by: Haloperidol Lactate (Haldol) 5 mg IM ONETIME PRN PRN Reason: Pain Last Admin: 05/09/20 19:47 Dose: 5 mg Documented by: Pantoprazole Sodium 40 mg/ (Sodium Chloride) 10 mls @ 300 mls/hr IV Q12H [facility] Last Admin: 05/12/20 05:05 Dose: 300 mls/hr Documented by: Thiamine HCl 250 mg/ Sodium (Chloride) 102.5 mls @ 205 mls/hr IV DAILY [facility] Last Admin: 05/12/20 09:06 Dose: 205 mls/hr Documented by: Lorazepam (Ativan) 0 mg IV Q4H PRN; Protocol PRN Reason: CIWAA Last Admin: 05/10/20 02:54 Dose: 2 mg Documented by: Lorazepam (Ativan) 0 mg PO Q4H PRN; Protocol PRN Reason: CIWAA Last Admin: 05/10/20 23:26 Dose: 1 mg Documented by: Nicotine (Habitrol) 14 mg TRDERM DAILY [facility] Last Admin: 05/12/20 08:09 Dose: 14 mg Documented by: Ondansetron HCl (Zofran) 4 mg IVPUSH Q4H PRN PRN Reason: Nausea Sodium Chloride (Saline Flush) 2.5 ml FLUSH ASDIRECTED PRN PRN Reason: Keep Vein Open Last Admin: 05/10/20 16:27 Dose: 2.5 ml Documented by: Discontinued Medications Diazepam (Valium.) 5 mg PO DAILY [facility] Last Admin: 05/11/20 08:49 Dose: 5 mg Documented by: Gadobenate Dimeglumine (Multihance) 20 ml IVPUSH ONETIME STA Stop: 05/08/20 17:02 Last Admin: 05/08/20 17:03 Dose: 13 ml Documented by: Sodium Chloride (Normal Saline) 1,000 mls @ 999 mls/hr IV STAT ONE Stop: 05/07/20 14:46 Last Admin: 05/07/20 14:06 Dose: 999 mls/hr Documented by: Magnesium Sulfate 2 gm/ Premix 50 mls @ 50 mls/hr IV ONETIME ONE Stop: 05/07/20 16:02 Last Admin: 05/07/20 15:16 Dose: 50 mls/hr Documented by: Multivitamins/Minerals 10 ml/Thiamine HCl 100 mg/ Folic Acid 1 mg/ Sodium Chloride 1,011.2 mls @ 150 mls/hr IV ONETIME ONE Stop: 05/07/20 21:55 Last Admin: 05/07/20 15:31 Dose: 150 mls/hr Documented by: Sodium Chloride (Normal Saline) 1,000 mls @ 100 mls/hr IV Q10H [facility] Last Admin: 05/07/20 23:18 Dose: Not Given Documented by: Magnesium Sulfate 2 gm/ Premix 50 mls @ 50 mls/hr IV ONETIME ONE Stop: 05/07/20 17:29 Last Admin: 05/07/20 18:24 Dose: 50 mls/hr Documented by: Thiamine HCl 500 mg/ Sodium (Chloride) 255 mls @ 510 mls/hr IV TID [facility] Last Admin: 05/09/20 05:22 Dose: 510 mls/hr Documented by: Sodium Chloride (Normal Saline) 1,000 mls @ 100 mls/hr IV Q10H [place]ON Sodium Chloride (Normal Saline) 1,000 mls @ 100 mls/hr IV Q10H [facility] Last Admin: 05/09/20 06:46 Dose: Not Given Documented by: Magnesium Sulfate 4 gm/ Premix 100 mls @ 50 mls/hr IV ONETIME ONE Stop: 05/08/20 09:55 Last Admin: 05/08/20 09:38 Dose: 50 mls/hr Documented by: Potassium Chloride/Sodium Chloride (Normal Saline With 40 Meq Kcl) 1,000 mls @ 125 mls/hr IV ONETIME ONE Stop: 05/09/20 16:01 Last Admin: 05/09/20 11:34 Dose: Not Given Documented by: Magnesium Sulfate 4 gm/ Premix 100 mls @ 50 mls/hr IV ONETIME ONE Stop: 05/09/20 10:01 Last Admin: 05/09/20 08:52 Dose: 50 mls/hr Documented by: Thiamine HCl 500 mg/ Sodium (Chloride) 255 mls @ 510 mls/hr IV TID [facility] Stop: 05/09/20 22:29 Last Admin: 05/09/20 21:13 Dose: 510 mls/hr Documented by: Potassium Chloride/Sodium Chloride (Normal Saline With 40 Meq Kcl) 1,000 mls @ 125 mls/hr IV ONETIME ONE Stop: 05/09/20 19:29 Last Admin: 05/09/20 11:43 Dose: 125 mls/hr Documented by: Sodium Chloride (Normal Saline) 1,000 mls @ 75 mls/hr IV STAT ONE Stop: 05/10/20 10:02 Last Infusion: 05/10/20 09:27 Dose: 0 mls/hr Documented by: Potassium Chloride 40 meq/ (Premix) 100 mls @ 25 mls/hr IV ONETIME ONE Stop: 05/10/20 11:45 Last Admin: 05/10/20 09:23 Dose: Not Given Documented by: Magnesium Sulfate 1 gm/ Sodium (Chloride) 52 mls @ 104 mls/hr IV ONETIME ONE Stop: 05/10/20 08:59 Last Admin: 05/10/20 08:53 Dose: 104 mls/hr Documented by: Potassium Chloride 40 meq/ (Sodium Chloride) 520 mls @ 130 mls/hr IV ONETIME ONE Stop: 05/10/20 12:59 Last Admin: 05/10/20 09:22 Dose: 130 mls/hr Documented by: Potassium Chloride 40 meq/ (Sodium Chloride) 520 mls @ 130 mls/hr IV Q4H [place]ON Stop: 05/11/20 02:29 Last Admin: 05/10/20 22:36 Dose: 130 mls/hr Documented by: Potassium Chloride 20 meq/ (Premix) 50 mls @ 25 mls/hr IV ONETIME ONE Stop: 05/11/20 10:58 Last Admin: 05/11/20 09:39 Dose: Not Given Documented by: Magnesium Sulfate 4 gm/ Premix 100 mls @ 33.333 mls/hr IV ONETIME ONE Stop: 05/11/20 12:14 Last Admin: 05/11/20 09:59 Dose: 33.333 mls/hr Documented by: Potassium Chloride 20 meq/ (Sodium Chloride) 260 mls @ 130 mls/hr IV ONETIME ONE Stop: 05/11/20 11:44 Last Admin: 05/11/20 09:57 Dose: 130 mls/hr Documented by: Magnesium Sulfate 4 gm/ Premix 100 mls @ 50 mls/hr IV ONETIME ONE Stop: 05/12/20 10:36 Last Admin: 05/12/20 09:07 Dose: 50 mls/hr Documented by: Lorazepam (Ativan) 1 mg IVPUSH ONETIME ONE Stop: 05/07/20 14:44 Last Admin: 05/07/20 20:56 Dose: Not Given Documented by: Magnesium Sulfate (Magnesium Sulfate 50%) 4 gm IV NOW STA Stop: 05/11/20 09:05 Ondansetron HCl (Zofran) 4 mg IVPUSH ONETIME ONE Stop: 05/07/20 13:47 Last Admin: 05/07/20 14:06 Dose: 4 mg Documented by: Potassium Chloride (Klor-Con M20) 40 meq PO ONETIME ONE Stop: 05/12/20 08:38 Last Admin: 05/12/20 09:05 Dose: 40 meq Documented by: Sodium Chloride (Saline Flush) 10 ml FLUSH ASDIRECTED PRN PRN Reason: Keep Vein Open Last Admin: 05/07/20 14:15 Dose: 10 ml Documented by: Sodium Phosphate (Neutra-Phos) 250 mg PO QID KARON Last Admin: 05/12/20 06:21 Dose: 250 mg Documented by: - Exam General: Reports: Alert, Oriented, Cooperative, No Acute Distress Lungs: Reports: Clear to Auscultation, Normal Respiratory Effort Cardiovascular: Reports: Regular Rate, Regular Rhythm GI/Abdominal Exam: Normal Bowel Sounds, Soft, Non-Tender Extremities: Normal Inspection, Normal Range of Motion, Non-Tender, No Pedal Edema Neurological: Reports: No New Focal Deficit Psy/Mental Status: Reports: Alert, Normal Affect, Normal Mood
--- NOTE | 2020-05-12 12:56 | ECHO ---
EXAM DATE: 05/08/20 PATIENT'S AGE: 65 The ECHO report has been scanned into [employer] and can be seen in this patient's EMR (Electronic Medical Record) under the REPORTS section. The report has also been scanned into PACS. SANDI
== END 2020-05-12 16:50 | disposition home health service (06) | DRG 897 ==
LOC: MW.ED 13:27 → MW.MS 15:31 → OBSVTOIN 05-08 09:44 → MW.MS 05-08 09:45 → MW.ICU 05-09 20:37 → MW.MS 05-11 17:23
PROVIDERS: ADMIT Internal Medicine; ATTEND Internal Medicine
DX: F10.230 Alcohol dependence with withdrawal, uncomplicated (principal); E51.2 Wernicke's encephalopathy; R55 Syncope and collapse; E83.42 Hypomagnesemia; Y90.7 Blood alcohol level of 200-239 mg/100 ml; H54.7 Unspecified visual loss; F17.200 Nicotine dependence, unspecified, uncomplicated; Z87.19 Personal history of other diseases of the digestive system; R74.0 Nonspecific elevation of levels of transaminase and lactic acid dehydrogenase [LDH]; E80.6 Other disorders of bilirubin metabolism; D69.6 Thrombocytopenia, unspecified; Z90.49 Acquired absence of other specified parts of digestive tract
CPT/HCPCS: 36415; 70450; 70450-26; 70544; 70544-26; 70551; 70551-26; 71045; 71045-26; 76705; 76705-26; 80048; 80053; 80061; 80074; 80305-QW; 80307; 81001; 82962; 83036; 83690; 83735; 84100; 84443; 84484; 85025; 85610; 93005; 93306; 93880; 93880-26; 96361; 96365; 96367; 96368; 96372; 96375; 96376; 97161-GP; 99283; 99285-25; A9270-GY; A9577; C9113; G0378; J1630; J2060; J2405; J3411; J3475; J3480; J7030; J7040; J7050; U0002